=== PATIENT | female | born 1950 | race African-American/Black ===

== ENCOUNTER 2018-12-07 13:16 | Inpatient (IN) | payer OTHER ==
[~2018-12-07 13:16] MED LIST: ACETAMINOPHEN 1000 MG/100 ML VIAL (NON FORMULARY) IVPB ONE
[2018-12-07 13:26] VITALS: BMI 64.0
--- NOTE | 2018-12-07 14:03 | PDOC ---
History of Present Illness - General Chief Complaint: Weakness Stated Complaint: PAIN,UNABLE TO MOVE/vomiting/abd pain Time Seen by Provider: 12/07/18 13:38 History Source: Patient Exam Limitations: No Limitations - History of Present Illness Initial Comments: 12/07/18 13:58 68 yo F with a hx of DM presents to the emergency department with RUQ pain that began today at 12 pm. It was sudden onset while the patient was sitting on the toilet. The pain was 10/10, sharp, non radiating, and constant. She has had pain like this in the past but states the severity was less. She had 3x episodes of vomiting non-billious non bloody, but denies diarrhea. Per the patient, she states she feels currently better and does not have pain. The patient denies the following: chest pain, SOB, visual changes, nausea, abdominal pain, diarrhea, dysuria, hematuria, and leg pain/swelling. Endorses fevers. No recent travels or recent sick contacts. Shx: None Meds: Metformin Allergies: NKDA Social: Denies smoking, alcohol, and substance abuse. Past History - Past Medical History Allergies/Adverse Reactions: Allergies Allergy/AdvReac Type Severity Reaction Status Date / Time No Known Allergies Allergy Verified 12/07/18 13:18 Home Medications: Ambulatory Orders Atorvastatin Ca [Lipitor] 40 mg PO HS 12/08/18 Enalapril Maleate [Vasotec] 20 mg PO DAILY 12/08/18 metFORMIN HCL [Metformin HCl] 500 mg PO BID 12/08/18 COPD: No HTN: Yes - Suicide/Smoking/Psychosocial Hx Smoking History: Current every day smoker Have you smoked in the past 12 months: No Information on smoking cessation initiated: No Hx Alcohol Use: No Drug/Substance Use Hx: No Review of Systems - Review of Systems Able to Perform ROS?: Yes Is the patient limited [place] proficient: No Constitutional: Yes: Fever. No: Chills, Diaphoresis HEENTM: No: Eye Pain, Recent change in vision, Ear Pain, Nose Pain, Throat Pain Respiratory: No: Cough, Shortness of Breath, Hemoptysis Cardiac (ROS): No: Chest Pain, Lightheadedness, Palpitations, Syncope ABD/GI: Yes: Nausea, Vomiting. No: Constipated, Diarrhea, Rectal Bleeding, Tarry Stools : No: Burning, Dysuria, Hematuria, Incontinence Musculoskeletal: No: Back Pain, Joint Pain, Neck Pain Integumentary: No: Bruising, Erythema, Rash Neurological: No: Headache, Numbness, Tingling, Tremors Psychiatric: No: Change in Appetite Endocrine: No: Unexplained Weight Gain Hematologic/Lymphatic: No: Anemia *Physical Exam - Vital Signs Last Vital Signs Temp Pulse Resp BP Pulse Ox 102.7 F H 112 H 174 H 170/84 95 12/07/18 13:18 12/07/18 13:18 12/07/18 13:18 12/07/18 13:18 12/07/18 13:18 - Physical Exam General Appearance: Yes: Nourished, Appropriately Dressed, Obese. No: Apparent Distress, Intoxicated HEENT: positive: EOMI, PROMISE, Normal Voice, Symmetrical, Pharynx Normal, Hearing Grossly Normal. negative: Pale Conjunctivae, Scleral Icterus (R), Scleral Icterus (L), Muffled/Hoarse voice, Pharyngeal Erythema, Tonsillar Exudate, Tonsillar Erythema, Excessive drooling Neck: positive: Trachea midline, Supple. negative: Tender, Lymphadenopathy (R) , Lymphadenopathy (L), Tender lateral, Tender midline Respiratory/Chest: positive: Lungs Clear, Normal Breath Sounds, Other. negative : Chest Tender, Respiratory Distress, Accessory Muscle Use, Rales, Rhonchi, Stridor, Wheezing Cardiovascular: positive: Regular Rhythm, Regular Rate, S1, S2. negative: Systolic Murmur Gastrointestinal/Abdominal: positive: Normal Bowel Sounds, Flat, Soft, Protuberent. negative: Tender Lymphatic: negative: Adenopathy Musculoskeletal: positive: Normal Inspection. negative: CVA Tenderness Extremity: positive: Normal Capillary Refill, Normal Inspection, Normal Range of Motion. 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 negative: Facial Droop, Sensory Deficit Heart Score/ECG Review - ECG Intrepretation Comment:: Sinus tachycardia with left axis deviation and LVH. t wave inversion noted. ED Treatment Course - LABORATORY CBC & Chemistry Diagram: 12/08/18 05:30 12/08/18 05:30 Medical Decision Making - Medical Decision Making 68 yo F with a hx of DM presents to the emergency department with RUQ pain that began today at 12 pm. It was sudden onset while the patient was sitting on the toilet. Initial vitals; Initial Vital Signs Temp Pulse Resp BP Pulse Ox 102.7 F H 112 H 174 H 170/84 95 12/07/18 13:18 12/07/18 13:18 12/07/18 13:18 12/07/18 13:18 12/07/18 13:18 Work up: RUQ pain with fever concerns for cholecystitis vs cholangitis. ddx includes nephrolithiasis vs pyelonephritis vs UTI vs hepatitis vs cholelithiasis vs choledocholithiasis. Patient had a bedside POCUS that showed no wall thickening of the GB and CBD was difficult to visualize due to technical limitations. right kidney showed moderate hydronephrosis. Laboratory Tests 12/07/18 12/07/18 12/07/18 05:30 14:00 14:00 WBC 6.3 RBC 4.74 Hgb 12.8 Hct 39.6 MCV 83.6 MCH 27.1 MCHC 32.4 RDW 13.3 Plt Count 217 MPV 8.5 Absolute Neuts (auto) 5.8 Neutrophils % 91.1 H Neutrophils % (Manual) 76.5 Band Neutrophils % 8.2 Lymphocytes % 7.2 L Lymphocytes % (Manual) 10.2 Monocytes % 1.2 L Monocytes % (Manual) 4 Eosinophils % 0.2 Eosinophils % (Manual) 0.0 Basophils % 0.3 Basophils % (Manual) 0.0 Myelocytes % (Man) 0 Promyelocytes % (Man) 0 Blast Cells % (Manual) 0 Nucleated RBC % 0 Metamyelocytes 0 Hypochromia 0 Platelet Estimate Normal Polychromasia 0 Poikilocytosis 0 Anisocytosis 1+ Microcytosis 1+ Macrocytosis 0 PT with INR 13.30 H INR 1.13 H PTT (Actin FS) 27.5 VBG pH POC VBG pCO2 POC VBG pO2 VBG HCO3 VBG O2 Sat (Lizzie) VBG Base Excess Sodium Potassium Chloride Carbon Dioxide Anion Gap BUN Creatinine Creat Clearance w eGFR Random Glucose Lactic Acid Calcium Total Bilirubin AST ALT Alkaline Phosphatase Troponin I Total Protein Albumin Lipase Urine Color Urine Appearance Urine pH Ur Specific [place] Urine Protein Urine Glucose (UA) Urine Ketones Urine Blood Urine Nitrite Urine Bilirubin Urine Urobilinogen Ur Leukocyte Esterase Urine WBC (Auto) Urine RBC (Auto) Urine Casts (Auto) U Epithel Cells (Auto) Urine Bacteria (Auto) Influenza A (Rapid) Influenza B (Rapid) Blood Type A POSITIVE Antibody Screen Negative 12/07/18 12/07/18 12/07/18 14:00 14:00 14:00 WBC RBC Hgb Hct MCV MCH MCHC RDW Plt Count MPV Absolute Neuts (auto) Neutrophils % Neutrophils % (Manual) Band Neutrophils % Lymphocytes % Lymphocytes % (Manual) Monocytes % Monocytes % (Manual) Eosinophils % Eosinophils % (Manual) Basophils % Basophils % (Manual) Myelocytes % (Man) Promyelocytes % (Man) Blast Cells % (Manual) Nucleated RBC % Metamyelocytes Hypochromia Platelet Estimate Polychromasia Poikilocytosis Anisocytosis Microcytosis Macrocytosis PT with INR INR PTT (Actin FS) VBG pH 7.39 POC VBG pCO2 47.2 POC VBG pO2 28.0 L VBG HCO3 27.7 VBG O2 Sat (Lizzie) 48.9 L VBG Base Excess 2.5 H Sodium 142 Potassium 3.7 Chloride 107 Carbon Dioxide 30 Anion Gap 5 L BUN 16 Creatinine 1.1 Creat Clearance w eGFR 49.69 Random Glucose 105 Lactic Acid Calcium 8.8 Total Bilirubin 0.7 AST 26 ALT 30 Alkaline Phosphatase 70 Troponin I Total Protein 8.0 Albumin 3.7 Lipase 169 Urine Color Yellow Urine Appearance Clear Urine pH 6.5 Ur Specific [place] 1.007 L Urine Protein Negative Urine Glucose (UA) Negative Urine Ketones Negative Urine Blood 2+ H Urine Nitrite Negative Urine Bilirubin Negative Urine Urobilinogen 0.2 Ur Leukocyte Esterase Trace Urine WBC (Auto) 5 Urine RBC (Auto) 49 Urine Casts (Auto) 3 U Epithel Cells (Auto) 1.4 Urine Bacteria (Auto) 57.6 Influenza A (Rapid) Influenza B (Rapid) Blood Type Antibody Screen 12/07/18 12/07/18 12/07/18 14:00 14:00 14:25 WBC RBC Hgb Hct MCV MCH MCHC RDW Plt Count MPV Absolute Neuts (auto) Neutrophils % Neutrophils % (Manual) Band Neutrophils % Lymphocytes % Lymphocytes % (Manual) Monocytes % Monocytes % (Manual) Eosinophils % Eosinophils % (Manual) Basophils % Basophils % (Manual) Myelocytes % (Man) Promyelocytes % (Man) Blast Cells % (Manual) Nucleated RBC % Metamyelocytes Hypochromia Platelet Estimate Polychromasia Poikilocytosis Anisocytosis Microcytosis Macrocytosis PT with INR INR PTT (Actin FS) VBG pH POC VBG pCO2 POC VBG pO2 VBG HCO3 VBG O2 Sat (Lizzie) VBG Base Excess Sodium Potassium Chloride Carbon Dioxide Anion Gap BUN Creatinine Creat Clearance w eGFR Random Glucose Lactic Acid 3.4 H* Calcium Total Bilirubin AST ALT Alkaline Phosphatase Troponin I 0.02 Total Protein Albumin Lipase Urine Color Urine Appearance Urine pH Ur Specific [place] Urine Protein Urine Glucose (UA) Urine Ketones Urine Blood Urine Nitrite Urine Bilirubin Urine Urobilinogen Ur Leukocyte Esterase Urine WBC (Auto) Urine RBC (Auto) Urine Casts (Auto) U Epithel Cells (Auto) Urine Bacteria (Auto) Influenza A (Rapid) Negative Influenza B (Rapid) Negative Blood Type Antibody Screen patient received 30 cc/kg of fluids for IVF and tylenol for fever reduction and analgesia. patient received a CT scan with abdomen and pelvis that showed moderate hydronephrosis of the right kidney with an obstructing stone in the setting of a UTI on UA and fever. In addition, lactic acid elevated without a leukocytosis but elevated bands. influenza negative. cxr showed 12/07/18 19:02 A call was placed out to Dr. Lugo for possible infected stone. Concerning that she is septic in picture with moderate hydronephrosis with right renal calculi. 12/07/18 19:28 Dr. Lugo wants her to be NPO and will put a stent in tomorrow. Patient was signed out to Dr. Hugo *DC/Admit/Observation/Transfer Diagnosis at time of Disposition: Complicated UTI (urinary tract infection) - Referrals - Patient Instructions - Post Discharge Activity
[2018-12-07] MEDS ORDERED: SODIUM CHLORIDE IV ONE (14:06)
[2018-12-07] MEDS ORDERED: ACETAMINOPHEN 1000 MG/100 ML VIAL (NON FORMULARY) IVPB ONE (14:06)
[2018-12-07 14:21] LABS: VENOUS PC02 47.2 mmHg (41-51); VENOUS PH 7.39 (7.31-7.41)
[2018-12-07 14:33] LABS: BASO % 0.3 % (0-2.0); EOS % 0.2 % (0-4.5); HEMATOCRIT 39.6 % (32.4-45.2); HEMOGLOBIN 12.8 GM/dL (10.7-15.3); LYMPH % 7.2 % (8-40); MCH 27.1 pg (25.7-33.7); MCHC 32.4 g/dl (32.0-36.0); MEAN CELL VOLUME 83.6 fl (80-96); MEAN PLT VOLUME 8.5 fl (7.5-11.1); MONO % 1.2 % (3.8-10.2); NEUT % 91.1 % (42.8-82.8); PLATELET COUNT 217 K/MM3 (134-434); RBC 4.74 M/mm3 (3.60-5.2); RDW 13.3 % (11.6-15.6); WHITE BLOOD COUNT 6.3 K/mm3 (4.0-10.0)
[2018-12-07 14:37] LABS: EPI CELLS 1.4 /HPF (0-5/HPF); PH,URINE 6.5 (5.0-8.0); URINE APPEARANCE CLEAR; URINE BACTERIA 57.6 /hpf (NEGATIVE); URINE BILIRUBIN NEGATIVE (NEGATIVE); URINE CASTS 3 /lpf (0-8); URINE COLOR YELLOW; URINE GLUCOSE (UA) NEGATIVE (NEGATIVE); URINE KETONE NEGATIVE (NEGATIVE); URINE LEUK ESTERASE TRACE (NEGATIVE); URINE NITRITE NEGATIVE (NEGATIVE); URINE PROTEIN NEGATIVE (NEGATIVE); URINE RBC 49 /hpf (0-4); URINE UROBILINOGEN 0.2 mg/dL (0.2-1.0); URINE WBC 5 /hpf (0-5)
[2018-12-07 14:47] LABS: INR 1.13 (0.83-1.09); PROTHROMBIN TIME (PATIENT) 13.3 SEC (9.7-13.0)
[2018-12-07 14:49] LABS: ACTIVATED PTT 27.5 SECONDS (25.2-36.5)
[2018-12-07 15:04] LABS: ALBUMIN 3.7 g/dl (3.4-5.0); ALK PHOS 70 U/L (45-117); ANION GAP 5 MMOL/L (8-16); BILIRUBIN,TOTAL 0.7 mg/dL (0.2-1); BLOOD UREA NITROGEN 16 mg/dL (7-18); CALCIUM 8.8 mg/dL (8.5-10.1); CHLORIDE 107 mmol/L (98-107); CO2 30 mmol/L (21-32); CREATININE 1.1 mg/dL (0.55-1.3); GLUCOSE,RANDOM 105 mg/dL (74-106); LIPASE 169 U/L (73-393); POTASSIUM 3.7 mmol/L (3.5-5.1); SGOT/AST 26 U/L (15-37); SGPT/ALT 30 U/L (13-61); SODIUM 142 mmol/L (136-145)
[2018-12-07 15:11] LABS: ANISOCYTOSIS 1+; MACROCYTOSIS 0; PLATELET ESTIMATE NORMAL
[2018-12-07] MEDS ORDERED: PIPERACILLIN/TAZOB 3.375 GM 3.375 GM in DEXTROSE 5%-WATER - 50 ML IVPB ONE (15:30)
--- NOTE | 2018-12-07 16:11 | PDOC ---
Documentation entered by Cate Chapa SCRIBE, acting as scribe for Gelacio Gomez MD. Gelacio Gomez MD: This documentation has been prepared by the Sammi meehan Adrianna, SCRIBE, under my direction and personally reviewed by me in its entirety. I confirm that the documentation accurately reflects all work, treatment, procedures, and medical decision making performed by me. Attending Attestation - Resident Resident Name: Zafar Pinedo - ED Attending Attestation I have performed the following: I have examined & evaluated the patient, The case was reviewed & discussed with the resident, I agree w/resident's findings & plan, Exceptions are as noted - HPI HPI: The patient is a 68 year old female, with a significant PMH of DM and HTN, who presents to the emergency department today complaining of abdominal pain for 2 hours. Patient notes that the pain is most prominent on the R flank, and suddenly began while sitting on the toilet. She describes the pain as a 10/10, localized, constant, and sharp in nature. Patient endorses 3 episodes of associated NBNB vomit following the sudden onset of the abdominal pain. She confirms a history of similar symptoms in the past, but not as severe as today s episode. Patients son notes her last meal was 5 hours ago. The patient denies chest pain, shortness of breath, headache and dizziness. Denies fever, chills, diarrhea and constipation. Denies dysuria, frequency, urgency and hematuria. Allergies: NKA Past surgical history: Social history: Denies EtOH, tobacco, or illicit drug use. PCP: Dr. 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 Kurkowski with R hydro Plan for CTAP non con to evaluate kidneys 18:47- paged Dr. Lugo's call service, awaiting call back 12/07/18 18:47 19:29- resident spoke with Dr. Lugo concerning patient's care 12/07/18 19:37
--- NOTE | 2018-12-07 16:18 | EKG ---
Test Reason : Blood Pressure : / mmHG Vent. Rate : 109 BPM Atrial Rate : 109 BPM P-R Int : 146 ms QRS Dur : 086 ms QT Int : 334 ms P-R-T Axes : 035 -35 076 degrees QTc Int : 449 ms SINUS TACHYCARDIA POSSIBLE LEFT ATRIAL ENLARGEMENT LEFT AXIS DEVIATION LEFT VENTRICULAR HYPERTROPHY NONSPECIFIC T WAVE ABNORMALITY ABNORMAL ECG NO PREVIOUS ECGS AVAILABLE Confirmed by TYRESE LORD MD ([id number]) on 12/07/2018 4:17:53 PM Referred By: Confirmed By:TYRESE LORD MD
[2018-12-07] MEDS ORDERED: PIPERACILLIN/TAZOB 3.375 GM 3.375 GM/50 ML BAG IVPB ONE (16:30)
--- NOTE | 2018-12-07 19:50 | PN ---
Teaching Attending Note Name of Resident: Jf Palomino ATTENDING PHYSICIAN STATEMENT I saw and evaluated the patient. I reviewed the resident's note and discussed the case with the resident. I agree with the resident's findings and plan as documented. SUBJECTIVE: Patient is a 68 year old woman with PMH of NIDDM and HTN, who presents to the ER complaining of abdominal pain for 2 hours. Patient notes that the pain is most prominent on the R flank, and suddenly began while sitting on the toilet. She describes the pain as a 10/10, localized, constant, and sharp in nature. Patient had 3 episodes of associated NBNB vomit following the sudden onset of the abdominal pain. She confirms a history of similar symptoms in the past, but not as severe as todays episode. Patients son notes her last meal was 5 hours ago. The patient denies chest pain, shortness of breath, headache and dizziness. Denies fever, chills, diarrhea and constipation. Denies dysuria, frequency, urgency and hematuria. OBJECTIVE: Alert Vital Signs Period Temp Pulse Resp BP Sys/Mei Pulse Ox Last 24 Hr 99.3 F-102.7 F 92-112 20-174 155-170/69-84 95-98 HEENT: No Jaundice, eye redness or discharge, PERRLA, EOMI. Normocephalic, atraumatic. External ears are normal and hearing is grossly intact. No nasal discharge. Neck: Supple, nontender. No palpable adenopathy or thyromegaly. No JVD Chest: Good effort. Clear to auscultation and percussion. Heart: Regular. No S3, rub or murmur Abdomen: Not distended, soft, nontender and no HSM. No rebound or guarding. Normal bowel sounds. Ext: Peripheral pulses intact. No leg edema. Skin: Warm and dry. No petechiae, rash or ecchymosis. Neuro: Alert. Oriented x3. CN 2-12 grossly intact. Sensation grossly intact in all four extremities and DTR are symmetric. Psych: Appropriate mood and affect. Good insight. Home Medications Medication Instructions Recorded Unobtainable 12/07/18 Abnormal Lab Results 12/07/18 12/07/18 12/07/18 14:00 14:00 14:00 Neutrophils % 91.1 H Lymphocytes % 7.2 L Monocytes % 1.2 L PT with INR 13.30 H INR 1.13 H POC VBG pO2 VBG O2 Sat (Lizzie) VBG Base Excess Anion Gap Lactic Acid Ur Specific [place] 1.007 L Urine Blood 2+ H 12/07/18 12/07/18 12/07/18 14:00 14:00 14:00 Neutrophils % Lymphocytes % Monocytes % PT with INR INR POC VBG pO2 28.0 L VBG O2 Sat (Lizzie) 48.9 L VBG Base Excess 2.5 H Anion Gap 5 L Lactic Acid 3.4 H* Ur Specific [place] Urine Blood Current Medications Generic Name Dose Route Start Last Admin Trade Name Freq PRN Reason Stop Dose Admin Acetaminophen 650 mg 12/07/18 22:58 Tylenol - PO Q4H PRN PAIN LEVEL 1-5 Ceftriaxone Sodium 1 gm/ 50 mls @ 100 mls/hr 12/08/18 10:00 Dextrose IVPB DAILY [facility] Protocol Lactated Ringer's 1,000 mls @ 100 mls/hr 12/07/18 22:58 Lactated Ringers Solution IV ASDIR [facility] Insulin Aspart 1 vial 12/08/18 07:00 Novolog Vial Sliding Scale - SQ ACHS [facility] Protocol Morphine Sulfate 2 mg 12/07/18 22:58 Morphine Sulfate IVPUSH Q4H PRN PAIN LEVEL 6-10 ASSESSMENT AND PLAN: 1. Kidney stone disease/Right hydronephrosis/Sepsis - CT scan of abdomen/Pelvis shows right ureteral stone with hydronephrosis, bilateral renal calculi and bladder calculus. Flu swab is negative. Will treat with IV Rocephin, IV LR, Flomax and trend lactic acid. Keep patient NPO for possible cystoscopy. Consult urology. EKG shows sinus tachycardia with no significant ST-T wave changes. Needs ECHO to evaluate cardiomegaly and retrocardiac atelectasis noted on CXR. Outpatient workup for stone disease risk factor. 2. DM Will implement sliding scale insulin regimen. Provide comprehensive diabetes care with patient teaching and counseling about the importance of adherence to prescribed diabetes regimen, euglycemia, eye care and foot care. 3. Morbid Obesity Counseled on the risks associated with obesity. Will provide patient all the necessary assistance, counseling and positive reinforcement to facilitate weight loss. Consult enforcement manager. 4. Uncontrolled Hypertension - Restart outpatient antihypertensive drugs and revise regimen to ensure smooth [id number]-axisd good BP control. Nonpharmacologic measures to control hypertension like weight loss, salt restriction and exercise discussed. 5. DVT prophylaxis - SCD, TEDs. Start Lovenox 40 mg SQ q 12 hours after procedure. 6. Advance directives - Full code
[2018-12-07] MEDS ORDERED: LACTATED RINGERS SOLUTION 1,000 ML IV SCH ×2 (20:45→22:58)
[2018-12-07] MEDS ORDERED: MORPHINE SULFATE 2 MG/ML VIAL IVPUSH PRN ×2 (20:45→22:58)
[2018-12-07] MEDS ORDERED: ACETAMINOPHEN 325 MG TABLET (FP) PO PRN ×2 (20:45→22:58)
[2018-12-07] MEDS ORDERED: CEFTRIAXONE 1 GM in DEXTROSE 5%-WATER - 50 ML IVPB SCH (21:00)
[2018-12-07] MEDS ORDERED: INSULIN SLIDING SCALE (NOVOLOG) 1 VIAL SQ SCH (22:00)
[2018-12-07] MEDS ORDERED: GENTAMICIN SO4 80 MG/2 ML VIAL ONE (22:19)
--- NOTE | 2018-12-07 22:21 | CON.GU ---
Consult Consult Specialty:: urology Reason for Consultation:: urosepsis with obstucting right ureteral stone - History of Present Illness Chief Complaint: right renal colic with sepsis History of Present Illness: Patient is a 68 year old felmale with 3 day history of right flank pain with hydro secondary to a ureteral stone. The patient developed high grade fever with nausea and vomiting with tachycardia. Patient has not eaten for 24 hours. Patient describes weakness with severe lethargy. - History Source History Provided By: Patient, Family Member, Medical Record Limitations to Obtaining History: No Limitations - Alcohol/Substance Use Hx Alcohol Use: No - Smoking History Smoking history: Current every day smoker Have you smoked in the past 12 months: No Home Medications - Allergies Allergies/Adverse Reactions: Allergies Allergy/AdvReac Type Severity Reaction Status Date / Time No Known Allergies Allergy Verified 12/07/18 13:18 - Home Medications Home Medications: Ambulatory Orders Unobtainable 12/07/18 Physical Exam- Vital Signs: Vital Signs Temperature 99.3 F 12/07/18 17:48 Pulse Rate 92 H 12/07/18 17:48 Respiratory Rate 20 12/07/18 17:48 Blood Pressure 155/69 12/07/18 17:48 O2 Sat by Pulse Oximetry (%) 98 12/07/18 17:48 Constitutional: Yes: Severe Distress, Obese Eyes: Yes: WNL, Conjunctiva Clear, EOM Intact HENT: Yes: WNL, Atraumatic, Normocephalic Neck: Yes: WNL, Supple, Trachea Midline Cardiovascular: Yes: WNL Respiratory: Yes: Tachypnea Gastrointestinal: Yes: Soft, Abdomen, Obese, Hypoactive Bowel Sounds Renal/: Yes: CVA Tenderness - Right Kidneys: Yes: FLank Pain Right Pelvis: Yes: Bladder Non Palpable Musculoskeletal: Yes: WNL Labs: CBC, BMP 12/07/18 14:00 12/07/18 14:00 Imaging - Results Cat Scan: Report Reviewed Assessment/Plan imp right ureteral obstruction urosepsis plan * patient is emergently taken to the operating room for stent placement to avoid renal injury and * discussed with patient and family x 25 minutes
[2018-12-07] MEDS ORDERED: PROPOFOL 20 ML ONE (22:22)
[2018-12-07] MEDS ORDERED: KETAMINE HCL 200 MG/20 ML VIAL ONE (22:23)
[2018-12-07] MEDS ORDERED: SUCCINYLCHOLINE CHLORIDE 200 MG/10 ML VIAL ONE (22:23)
[2018-12-07] MEDS ORDERED: ROCURONIUM BROMIDE 50 MG/5 ML VIAL ONE ×2 (22:54)
[2018-12-07] MEDS ORDERED: GLYCOPYRROLATE 0.2 MG/1 ML VIAL ONE (23:11)
[2018-12-07] MEDS ORDERED: IOHEXOL 300 MG/ML INFUS..BTL IJ ONE ×2 (23:11)
[2018-12-07] MEDS ORDERED: DEXAMETHASONE SOD PHOSPHATE 4 MG/1 ML VIAL ONE (23:11)
[2018-12-07] MEDS ORDERED: NEOSTIGMINE METHYLSULFATE 0.5 MG/1 ML - 10 ML MDV ONE (23:11)
--- NOTE | 2018-12-07 23:11 | HP ---
CHIEF COMPLAINT: R abd and back pain PCP: HISTORY OF PRESENT ILLNESS: Patient is a 68 y/o F w/ PMHx DM p/w R-sided abdominal pain with acute onset around noon, 10/10 severity, sharp, non-radiating, a/w 3 episodes NBNB emesis and generalized back pain, fever. ROS otherwise negative. On presentation febrile to 102.7, tachycardic to 112, BP 170/84, all improved after administration of Ofirmev. No leukocytosis, CBC and BMP wnl, lactate 3.4-->2.5, UA showing 5 WBC, 49 RBC, 57.[address] pending[address] CT a/p showed 0.5x0.3cm obstructive R ureteral stone causing hydronephrosis, additional b/l non-obstructing renal stones, bladder stone, and incidental adrenal adenoma. Received 2.4L NS bolus, Ofirmev, Zosyn in ED. At time of encounter pain was largely resolved although residual back pain remained. Recent Travel: PAST MEDICAL HISTORY: As per [facility] PAST SURGICAL HISTORY: Social History: Smoking: Alcohol: Drugs: Family History: Allergies No Known Allergies Allergy (Verified 12/07/18 13:18) HOME MEDICATIONS: Home Medications Medication Instructions Recorded Unobtainable 12/07/18 REVIEW OF SYSTEMS As per [facility] PHYSICAL EXAMINATION Vital Signs - 24 hr 12/07/18 12/07/18 13:18 17:48 Temperature 102.7 F H 99.3 F Pulse Rate 112 H Pulse Rate [ 92 H Left Radial] Respiratory 174 H 20 Rate Blood Pressure 170/84 Blood Pressure 155/69 [Left Arm] O2 Sat by Pulse 95 98 Oximetry (%) GENERAL: A&Ox3, NAD HEENT: NC/AT, PERRLA, EOMI, MMM NECK: Trachea midline, full range of motion, supple. LUNGS: body habitus limiting exam, no adventitious sounds appreciated HEART: body habitus limiting exam, RRR ABDOMEN: morbidly obese, soft, NT, ND EXTREMITIES: 2+ pulses, warm, well-perfused, +venous stasis, no edema. 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 SKIN: Warm, dry, normal turgor, no rashes or lesions noted Laboratory Results - last 24 hr 12/07/18 12/07/18 12/07/18 14:00 14:00 14:00 WBC 6.3 RBC 4.74 Hgb 12.8 Hct 39.6 MCV 83.6 MCH 27.1 MCHC 32.4 RDW 13.3 Plt Count 217 MPV 8.5 Absolute Neuts (auto) 5.8 Neutrophils % 91.1 H Neutrophils % (Manual) 76.5 Band Neutrophils % 8.2 Lymphocytes % 7.2 L Lymphocytes % (Manual) 10.2 Monocytes % 1.2 L Monocytes % (Manual) 4 Eosinophils % 0.2 Eosinophils % (Manual) 0.0 Basophils % 0.3 Basophils % (Manual) 0.0 Myelocytes % (Man) 0 Promyelocytes % (Man) 0 Blast Cells % (Manual) 0 Nucleated RBC % 0 Metamyelocytes 0 Hypochromia 0 Platelet Estimate Normal Polychromasia 0 Poikilocytosis 0 Anisocytosis 1+ Microcytosis 1+ Macrocytosis 0 PT with INR 13.30 H INR 1.13 H PTT (Actin FS) 27.5 VBG pH POC VBG pCO2 POC VBG pO2 VBG HCO3 VBG O2 Sat (Lizzie) VBG Base Excess Sodium Potassium Chloride Carbon Dioxide Anion Gap BUN Creatinine Creat Clearance w eGFR Random Glucose Lactic Acid Calcium Total Bilirubin AST ALT Alkaline Phosphatase Troponin I Total Protein Albumin Lipase Urine Color Yellow Urine Appearance Clear Urine pH 6.5 Ur Specific [place] 1.007 L Urine Protein Negative Urine Glucose (UA) Negative Urine Ketones Negative Urine Blood 2+ H Urine Nitrite Negative Urine Bilirubin Negative Urine Urobilinogen 0.2 Ur Leukocyte Esterase Trace Urine WBC (Auto) 5 Urine RBC (Auto) 49 Urine Casts (Auto) 3 U Epithel Cells (Auto) 1.4 Urine Bacteria (Auto) 57.6 Influenza A (Rapid) Influenza B (Rapid) 12/07/18 12/07/18 12/07/18 14:00 14:00 14:00 WBC RBC Hgb Hct MCV MCH MCHC RDW Plt Count MPV Absolute Neuts (auto) Neutrophils % Neutrophils % (Manual) Band Neutrophils % Lymphocytes % Lymphocytes % (Manual) Monocytes % Monocytes % (Manual) Eosinophils % Eosinophils % (Manual) Basophils % Basophils % (Manual) Myelocytes % (Man) Promyelocytes % (Man) Blast Cells % (Manual) Nucleated RBC % Metamyelocytes Hypochromia Platelet Estimate Polychromasia Poikilocytosis Anisocytosis Microcytosis Macrocytosis PT with INR INR PTT (Actin FS) VBG pH 7.39 POC VBG pCO2 47.2 POC VBG pO2 28.0 L VBG HCO3 27.7 VBG O2 Sat (Lizzie) 48.9 L VBG Base Excess 2.5 H Sodium 142 Potassium 3.7 Chloride 107 Carbon Dioxide 30 Anion Gap 5 L BUN 16 Creatinine 1.1 Creat Clearance w eGFR 49.69 Random Glucose 105 Lactic Acid 3.4 H* Calcium 8.8 Total Bilirubin 0.7 AST 26 ALT 30 Alkaline Phosphatase 70 Troponin I Total Protein 8.0 Albumin 3.7 Lipase 169 Urine Color Urine Appearance Urine pH Ur Specific [place] Urine Protein Urine Glucose (UA) Urine Ketones Urine Blood Urine Nitrite Urine Bilirubin Urine Urobilinogen Ur Leukocyte Esterase Urine WBC (Auto) Urine RBC (Auto) Urine Casts (Auto) U Epithel Cells (Auto) Urine Bacteria (Auto) Influenza A (Rapid) Influenza B (Rapid) 12/07/18 12/07/18 12/07/18 14:00 14:25 18:40 WBC RBC Hgb Hct MCV MCH MCHC RDW Plt Count MPV Absolute Neuts (auto) Neutrophils % Neutrophils % (Manual) Band Neutrophils % Lymphocytes % Lymphocytes % (Manual) Monocytes % Monocytes % (Manual) Eosinophils % Eosinophils % (Manual) Basophils % Basophils % (Manual) Myelocytes % (Man) Promyelocytes % (Man) Blast Cells % (Manual) Nucleated RBC % Metamyelocytes Hypochromia Platelet Estimate Polychromasia Poikilocytosis Anisocytosis Microcytosis Macrocytosis PT with INR INR PTT (Actin FS) VBG pH POC VBG pCO2 POC VBG pO2 VBG HCO3 VBG O2 Sat (Lizzie) VBG Base Excess Sodium Potassium Chloride Carbon Dioxide Anion Gap BUN Creatinine Creat Clearance w eGFR Random Glucose Lactic Acid 2.5 H* Calcium Total Bilirubin AST ALT Alkaline Phosphatase Troponin I 0.02 Total Protein Albumin Lipase Urine Color Urine Appearance Urine pH Ur Specific [place] Urine Protein Urine Glucose (UA) Urine Ketones Urine Blood Urine Nitrite Urine Bilirubin Urine Urobilinogen Ur Leukocyte Esterase Urine WBC (Auto) Urine RBC (Auto) Urine Casts (Auto) U Epithel Cells (Auto) Urine Bacteria (Auto) Influenza A (Rapid) Negative Influenza B (Rapid) Negative ASSESSMENT/PLAN: Patient is a 68 y/o F w/ PMHx DM p/w R-sided abdominal pain with acute onset around noon, 10/10 severity, sharp, non-radiating, a/w 3 episodes NBNB emesis and generalized back pain, fever #A -UA positive -obstructing R ureteral stone w/ hydronephrosis -meets sepsis criteria -sugars well controlled #P -urology consulted -Dr. Lugo to perform emergent stenting -pre-op labs pending -nephrology consulted -ceftriaxone -flomax -tylenol/morphine per pain scale -SSI, BGM ACHS -LR @ 100 -f/u BMP, Mg, Phos -NPO -mechanical DVT PPx -full code -admit to med/surg Visit type - Emergency Visit Emergency Visit: Yes ED Registration Date: 12/07/18 Care time: The patient presented to the Emergency Department on the above date and was hospitalized for further evaluation of their emergent condition. - New Patient This patient is new to me today: Yes Date on this admission: 12/07/18 - Critical Care Critical Care patient: No
--- NOTE | 2018-12-07 23:21 | OP ---
Operative Note - Note: Operative Date: 12/07/18 Pre-Operative Diagnosis: right hydronephrosis with obstructing right ureteral stone with urosepsis Operation: cystoscopy/right retrograde pyelogram/right ureteroscopic stone basketing and stent placement Findings: grade 4/5 hydroureteronephrosis Post-Operative Diagnosis: Same as Pre-op Surgeon: Dom Lugo Anesthesia: General Specimens Removed: right ureteral stone Drains & Tubes with Location: 02/03 right ureteral stone
[2018-12-07] MEDS ORDERED: LABETALOL HCL 5 MG/1 ML (100MG/20 ML VIAL) ONE (23:28)
[2018-12-07] MEDS ORDERED: ESMOLOL HCL 100,000 MCG/10 ML VIAL ONE (23:28)
[2018-12-08] MEDS ORDERED: ACETAMINOPHEN INJECTION 100 ML IVPB ONE (00:06)
[2018-12-08] MEDS ORDERED: hydrALAZINE HCL 20 MG/ML VIAL ONE (00:15)
--- NOTE | 2018-12-08 00:29 | CONSULT ---
Consultation: REQUESTING PROVIDER: OR CONSULT REQUEST: We have been asked to medically evaluate this patient for post op. HISTORY OF PRESENT ILLNESS: This is a 68 year old female with a history of morbid obesity, hypertension and diabetes mellitus II, who presented to the ER with severe abdominal pain. Patient found to be septic with urinary tract infection, CT revealed right hydronephrosis with obstructing right ureteral stone. She was taken to OR for cystoscopy/right retrograde pyelogram/right ureteroscopic stone basketing and stent placement. Post op remained febrile, with BP 210/109. She was extubated and given 0mg IV labetolol with out effect on BP. Upon receiving patient ; appears tachypniec ; on venti mask ; with BP 197/95. Responds with yes or no. Denies NUÑEZ, CP , blurry vision, palpitations. She states she braga not ambulate well at home, mostly sedentary. PMHs : as above Social : denies smoking . alcohol or drug use REVIEW OF SYSTEMS:as above PHYSICAL EXAMINATION Vital Signs - 24 hr 12/07/18 12/07/18 13:18 17:48 Temperature 102.7 F H 99.3 F Pulse Rate 112 H Pulse Rate [ 92 H Left Radial] Respiratory 174 H 20 Rate Blood Pressure 170/84 Blood Pressure 155/69 [Left Arm] O2 Sat by Pulse 95 98 Oximetry (%) GENERAL: obese , lethargic, responds to question with one word answers; on vent mask HEAD: Normal with no signs of trauma. EYES: Pupils equal, round and reactive to light, extraocular movements intact, sclera anicteric, conjunctiva clear. No lid lag. LUNGS:bilateral course breath sounds; crackles at basis scattered wheeze HEART: Regular rate and rhythm, normal S1 and S2 without murmur, rub or gallop. ABDOMEN: Soft, nontender,obese, normoactive bowel sounds, UPPER EXTREMITIES: 2+ pulses, warm, well-perfused. No cyanosis. No clubbing. Cap refill <2 seconds. No peripheral edema. LOWER EXTREMITIES: 2+ pulses, warm, well-perfused. No calf tenderness. trace b/ l pedal edema; chronic venous stasis changes; NEUROLOGICAL: Cranial nerves II-XII intact. Normal speech. PSYCHIATRIC: poor eye contact SKIN: Warm, dry, normal turgor, no rashes or lesions noted. Laboratory Results - last 24 hr 12/07/18 12/07/18 12/07/18 14:00 14:00 14:00 WBC 6.3 RBC 4.74 Hgb 12.8 Hct 39.6 MCV 83.6 MCH 27.1 MCHC 32.4 RDW 13.3 Plt Count 217 MPV 8.5 Absolute Neuts (auto) 5.8 Neutrophils % 91.1 H Neutrophils % (Manual) 76.5 Band Neutrophils % 8.2 Lymphocytes % 7.2 L Lymphocytes % (Manual) 10.2 Monocytes % 1.2 L Monocytes % (Manual) 4 Eosinophils % 0.2 Eosinophils % (Manual) 0.0 Basophils % 0.3 Basophils % (Manual) 0.0 Myelocytes % (Man) 0 Promyelocytes % (Man) 0 Blast Cells % (Manual) 0 Nucleated RBC % 0 Metamyelocytes 0 Hypochromia 0 Platelet Estimate Normal Polychromasia 0 Poikilocytosis 0 Anisocytosis 1+ Microcytosis 1+ Macrocytosis 0 PT with INR 13.30 H INR 1.13 H PTT (Actin FS) 27.5 VBG pH POC VBG pCO2 POC VBG pO2 VBG HCO3 VBG O2 Sat (Lizzie) VBG Base Excess Sodium Potassium Chloride Carbon Dioxide Anion Gap BUN Creatinine Creat Clearance w eGFR Random Glucose Lactic Acid Calcium Total Bilirubin AST ALT Alkaline Phosphatase Troponin I Total Protein Albumin Lipase Urine Color Yellow Urine Appearance Clear Urine pH 6.5 Ur Specific [place] 1.007 L Urine Protein Negative Urine Glucose (UA) Negative Urine Ketones Negative Urine Blood 2+ H Urine Nitrite Negative Urine Bilirubin Negative Urine Urobilinogen 0.2 Ur Leukocyte Esterase Trace Urine WBC (Auto) 5 Urine RBC (Auto) 49 Urine Casts (Auto) 3 U Epithel Cells (Auto) 1.4 Urine Bacteria (Auto) 57.6 Influenza A (Rapid) Influenza B (Rapid) 12/07/18 12/07/18 12/07/18 14:00 14:00 14:00 WBC RBC Hgb Hct MCV MCH MCHC RDW Plt Count MPV Absolute Neuts (auto) Neutrophils % Neutrophils % (Manual) Band Neutrophils % Lymphocytes % Lymphocytes % (Manual) Monocytes % Monocytes % (Manual) Eosinophils % Eosinophils % (Manual) Basophils % Basophils % (Manual) Myelocytes % (Man) Promyelocytes % (Man) Blast Cells % (Manual) Nucleated RBC % Metamyelocytes Hypochromia Platelet Estimate Polychromasia Poikilocytosis Anisocytosis Microcytosis Macrocytosis PT with INR INR PTT (Actin FS) VBG pH 7.39 POC VBG pCO2 47.2 POC VBG pO2 28.0 L VBG HCO3 27.7 VBG O2 Sat (Lizzie) 48.9 L VBG Base Excess 2.5 H Sodium 142 Potassium 3.7 Chloride 107 Carbon Dioxide 30 Anion Gap 5 L BUN 16 Creatinine 1.1 Creat Clearance w eGFR 49.69 Random Glucose 105 Lactic Acid 3.4 H* Calcium 8.8 Total Bilirubin 0.7 AST 26 ALT 30 Alkaline Phosphatase 70 Troponin I Total Protein 8.0 Albumin 3.7 Lipase 169 Urine Color Urine Appearance Urine pH Ur Specific [place] Urine Protein Urine Glucose (UA) Urine Ketones Urine Blood Urine Nitrite Urine Bilirubin Urine Urobilinogen Ur Leukocyte Esterase Urine WBC (Auto) Urine RBC (Auto) Urine Casts (Auto) U Epithel Cells (Auto) Urine Bacteria (Auto) Influenza A (Rapid) Influenza B (Rapid) 12/07/18 12/07/18 12/07/18 14:00 14:25 18:40 WBC RBC Hgb Hct MCV MCH MCHC RDW Plt Count MPV Absolute Neuts (auto) Neutrophils % Neutrophils % (Manual) Band Neutrophils % Lymphocytes % Lymphocytes % (Manual) Monocytes % Monocytes % (Manual) Eosinophils % Eosinophils % (Manual) Basophils % Basophils % (Manual) Myelocytes % (Man) Promyelocytes % (Man) Blast Cells % (Manual) Nucleated RBC % Metamyelocytes Hypochromia Platelet Estimate Polychromasia Poikilocytosis Anisocytosis Microcytosis Macrocytosis PT with INR INR PTT (Actin FS) VBG pH POC VBG pCO2 POC VBG pO2 VBG HCO3 VBG O2 Sat (Lizzie) VBG Base Excess Sodium Potassium Chloride Carbon Dioxide Anion Gap BUN Creatinine Creat Clearance w eGFR Random Glucose Lactic Acid 2.5 H* Calcium Total Bilirubin AST ALT Alkaline Phosphatase Troponin I 0.02 Total Protein Albumin Lipase Urine Color Urine Appearance Urine pH Ur Specific [place] Urine Protein Urine Glucose (UA) Urine Ketones Urine Blood Urine Nitrite Urine Bilirubin Urine Urobilinogen Ur Leukocyte Esterase Urine WBC (Auto) Urine RBC (Auto) Urine Casts (Auto) U Epithel Cells (Auto) Urine Bacteria (Auto) Influenza A (Rapid) Negative Influenza B (Rapid) Negative Active Medications Generic Name Dose Route Start Last Admin Trade Name Freq PRN Reason Stop Dose Admin Acetaminophen 650 mg 12/07/18 22:58 Tylenol - PO Q4H PRN PAIN LEVEL 1-5 Ceftriaxone Sodium 1 gm/ 50 mls @ 100 mls/hr 12/08/18 10:00 Dextrose IVPB DAILY [facility] Protocol Lactated Ringer's 1,000 mls @ 100 mls/hr 12/07/18 22:58 Lactated Ringers Solution IV ASDIR GOVIND Insulin Aspart 1 vial 12/08/18 07:00 Novolog Vial Sliding Scale - SQ ACHS [facility] Protocol Morphine Sulfate 2 mg 12/07/18 22:58 Morphine Sulfate IVPUSH Q4H PRN PAIN LEVEL 6-10 ASSESSMENT/PLAN: This is a 68 year old obese female with history of DM, HTN, presented with abdominal pain, admitted for sepsis secondary to UTI with right hypdronephrosis and obstructing uretral stone. #Sepsis UTI with right hypdronephrosis and obstructive stone #POD #0 for : cystoscopy/right retrograde pyelogram/right ureteroscopic stone basketing and stent placement #Severe hypertension #DM -post op extubation; patient lethargic; hypertensive; s/p labetolol and hydralazine and still with systolic BP 200s -will start cardene drip -new crackles on lung exam; possible sec to fluid overload from IVF given for sepsis; r/o flash pulm edema from extubation -stat cxr -repeat abg -nebs -IV antibiotics; f/u cultures -BNP; -consider doppler b/l leg due leg swelling and sedentary lifestyle -incentive spirometer -BGM, insulin ss VTE ppl ; scds; s/p sx Thank you for this consultative opportunity. Visit type - Emergency Visit Emergency Visit: Yes ED Registration Date: 12/07/18 Care time: The patient presented to the Emergency Department on the above date and was hospitalized for further evaluation of their emergent condition. - New Patient This patient is new to me today: Yes Date on this admission: 12/08/18 - Critical Care Critical Care patient: Yes Total Critical Care Time (in minutes): 45 Critical Care Statement: The care of this patient involved high complexity decision making to prevent further life threatening deterioration of the patient 's condition and/or to evaluate & treat vital organ system(s) failure or risk of failure.
[2018-12-08] MEDS ORDERED: ACETAMINOPHEN 1000 MG/100 ML VIAL (NON FORMULARY) IVPB ONE (00:35)
[2018-12-08] MEDS ORDERED: ONDANSETRON 4 MG/2 ML VIAL IVPUSH PRN ×3 (00:35→23:10)
[2018-12-08] MEDS ORDERED: ALBUTEROL SO4 0.083% IH SOL 2.5 MG/3 ML VIAL.NEB. NEB ONE ×2 (00:38→18:28)
[2018-12-08] MEDS ORDERED: LACTATED RINGERS SOLUTION 1,000 ML IV SCH (00:45)
[2018-12-08] MEDS ORDERED: NICARDIPINE 25 MG in DEXTROSE 5%-WATER - 240 ML IVPB SCH (01:15)
[2018-12-08] MEDS ORDERED: niCARdipine HCL 25 MG/10 ML AMPUL IVPB ONE (01:37)
--- NOTE | 2018-12-08 01:47 | OP ---
DATE OF OPERATION: 12/07/2018 PREOPERATIVE DIAGNOSIS: Urosepsis with right hydronephrosis secondary to obstructing right ureteral stone. POSTOPERATIVE DIAGNOSIS: Urosepsis with right hydronephrosis secondary to obstructing right ureteral stone. PROCEDURE: Cystoscopy, right retrograde pyelogram, right ureteroscopic stone basketing and right ureteral stent placement. ATTENDING: Danni Mccarthy MD ANESTHESIA: General. OPERATION: The patient was brought into the emergency room with a high-grade fever with tachycardia consistent with a urinary tract infection. Her urine contained leukocyte esterase. The patient was started on Zosyn in the operating room and the urologist was called based on the clinical information. The patient required a ureteral stent placed emergently in order to avoid kidney injury and . Risks and benefits were explained to the family. The patient was brought to the operating room and placed in the supine position on the operating table. Anesthesia was administered. The patient is currently on Zosyn and was given a dose of gentamicin. At this point, the patient was placed in the dorsal lithotomy position, prepped, and draped in the usual sterile manner. Cystoscopy was performed and no evidence of a stone or neoplasm was noted within the bladder. There was patchy erythema throughout the bladder, consistent with the urinary tract infection. At this time, a retrograde pyelogram was performed, which revealed a grade 4/5 hydroureter. A filling defect was noted in the distal ureter. Ureteroscopy was performed and the stone was seen. The stone was basketed with minimal manipulation and removed and sent for pathology. A wire had been passed proximally under fluoroscopic guidance prior to the stone basketing. With the wire in place, a 6-Indonesian 22-cm stent was placed over the wire utilizing the Seldinger technique. No complications were noted. The patient tolerated the procedure very well. DANNI MCCARTHY M.D. /[id number]
[2018-12-08] MEDS: INSULIN SLIDING SCALE (NOVOLOG) 1 VIAL SQ SCH ×3 (06:38→17:11)
[2018-12-08 06:47] LABS: BASO % 0.2 % (0-2.0); EOS % 0.1 % (0-4.5); HEMATOCRIT 37.8 % (32.4-45.2); MCH 26.3 pg (25.7-33.7); MCHC 31.8 g/dl (32.0-36.0); MEAN CELL VOLUME 82.8 fl (80-96); MEAN PLT VOLUME 8.3 fl (7.5-11.1); MONO % 5.3 % (3.8-10.2); NEUT % 82.4 % (42.8-82.8); PLATELET COUNT 248 K/MM3 (134-434); RBC 4.56 M/mm3 (3.60-5.2); RDW 13.3 % (11.6-15.6); WHITE BLOOD COUNT 12.4 K/mm3 (4.0-10.0)
[2018-12-08 06:55] LABS: ANION GAP 9 MMOL/L (8-16); BLOOD UREA NITROGEN 12 mg/dL (7-18); CALCIUM 8.4 mg/dL (8.5-10.1); CHLORIDE 108 mmol/L (98-107); CO2 26 mmol/L (21-32); CREATININE 0.8 mg/dL (0.55-1.3); GLUCOSE,RANDOM 143 mg/dL (74-106); MAGNESIUM 2.1 mg/dL (1.8-2.4); PHOSPHOROUS 4.2 mg/dL (2.5-4.9); POTASSIUM 3.8 mmol/L (3.5-5.1); SODIUM 143 mmol/L (136-145)
[2018-12-08] MEDS ORDERED: TAMSULOSIN HCL 0.4 MG CAP PO SCH (08:30)
[2018-12-08] MEDS ORDERED: CEFTRIAXONE 1 GM in DEXTROSE 5%-WATER - 50 ML IVPB SCH (10:00)
[2018-12-08] MEDS ORDERED: MUPIROCIN 2% TOPICAL OINTMENT FOR DECOLONIZATION NS SCH ×2 (10:00→22:00)
[2018-12-08] MEDS ORDERED: ENALAPRIL MALEATE 10 MG TABLET (FP) PO SCH (11:00)
--- NOTE | 2018-12-08 11:09 | PN ---
Teaching Attending Note Name of Resident: Kaye Gunter ATTENDING PHYSICIAN STATEMENT I saw and evaluated the patient. I reviewed the resident's note and discussed the case with the resident. I agree with the resident's findings and plan as documented. SUBJECTIVE: Patient seen and examined in the ICU. Awake and alert. Translation via hospital service. No CP or SOB. No abdominal pain. Remains on Cardene drip at 5mg/hour. Intake & Output 12/05/18 12/06/18 12/07/18 12/08/18 23:59 23:59 23:59 23:59 Intake Total 3900 150 Output Total 0 Balance 3900 150 Weight 350 lb 350 lb Last Vital Signs Temp Pulse Resp BP Pulse Ox 99.0 F 73 20 147/75 97 12/08/18 06:00 12/08/18 07:44 12/08/18 07:44 12/08/18 07:44 12/08/18 01:09 Active Medications Acetaminophen (Tylenol -) 650 mg PO Q4H PRN PRN Reason: PAIN LEVEL 1-5 Atorvastatin Calcium (Lipitor -) 40 mg PO HS [facility] Chlorhexidine Gluconate (Hibiclens For Decolonization -) 1 applic TP HS [facility] Enalapril Maleate (Vasotec -) 20 mg PO DAILY [facility] Ceftriaxone Sodium 1 gm/ (Dextrose) 50 mls @ 100 mls/hr IVPB DAILY [facility]; Protocol Nicardipine HCl 25 mg/ (Dextrose) 250 mls @ 25 mls/hr IVPB TITR [facility]; Protocol Last Admin: 12/08/18 01:41 Dose: 2.5 mg/hr, 25 mls/hr Insulin Aspart (Novolog Vial Sliding Scale -) 1 vial SQ ACHS [facility]; Protocol Last Admin: 12/08/18 06:38 Dose: Not Given Morphine Sulfate (Morphine Sulfate) 2 mg IVPUSH Q4H PRN PRN Reason: PAIN LEVEL 6-10 Mupirocin (Bactroban Ointment (For Decolonization) -) 1 applic NS BID [facility] Stop: 12/13/18 09:59 Ondansetron HCl (Zofran Injection) 4 mg IVPUSH Q6H PRN PRN Reason: NAUSEA AND/OR VOMITING Last Admin: 12/08/18 01:05 Dose: 4 mg GENERAL: Awake and alert, NAD HEAD: Normal with no signs of trauma. EYES: sclera anicteric, conjunctiva clear. No lid lag. LUNGS:few scattered rhonchi HEART: Regular rate and rhythm, normal S1 and S2 without murmur, rub or gallop. ABDOMEN: Soft, nontender,obese, normoactive bowel sounds, UPPER EXTREMITIES: 2+ pulses, warm, well-perfused. No cyanosis. No clubbing. Cap refill <2 seconds. No peripheral edema. LOWER EXTREMITIES: 2+ pulses, warm, well-perfused. No calf tenderness. trace b/ l pedal edema; chronic venous stasis changes; NEUROLOGICAL: Non-focal PSYCHIATRIC: WNL SKIN: Warm, dry, normal turgor, no rashes or lesions noted. Laboratory Results - last 24 hr 12/07/18 12/07/18 12/07/18 05:30 14:00 14:00 WBC 6.3 RBC 4.74 Hgb 12.8 Hct 39.6 MCV 83.6 MCH 27.1 MCHC 32.4 RDW 13.3 Plt Count 217 MPV 8.5 Absolute Neuts (auto) 5.8 Neutrophils % 91.1 H Neutrophils % (Manual) 76.5 Band Neutrophils % 8.2 Lymphocytes % 7.2 L Lymphocytes % (Manual) 10.2 Monocytes % 1.2 L Monocytes % (Manual) 4 Eosinophils % 0.2 Eosinophils % (Manual) 0.0 Basophils % 0.3 Basophils % (Manual) 0.0 Myelocytes % (Man) 0 Promyelocytes % (Man) 0 Blast Cells % (Manual) 0 Nucleated RBC % 0 Metamyelocytes 0 Hypochromia 0 Platelet Estimate Normal Polychromasia 0 Poikilocytosis 0 Anisocytosis 1+ Microcytosis 1+ Macrocytosis 0 PT with INR 13.30 H INR 1.13 H PTT (Actin FS) 27.5 VBG pH POC VBG pCO2 POC VBG pO2 VBG HCO3 VBG O2 Sat (Lizzie) VBG Base Excess Sodium Potassium Chloride Carbon Dioxide Anion Gap BUN Creatinine Creat Clearance w eGFR POC Glucometer Random Glucose Lactic Acid Calcium Phosphorus Magnesium Total Bilirubin AST ALT Alkaline Phosphatase Creatine Kinase Creatine Kinase Index CK-MB (CK-2) Troponin I B-Natriuretic Peptide Total Protein Albumin Lipase Urine Color Urine Appearance Urine pH Ur Specific [place] Urine Protein Urine Glucose (UA) Urine Ketones Urine Blood Urine Nitrite Urine Bilirubin Urine Urobilinogen Ur Leukocyte Esterase Urine WBC (Auto) Urine RBC (Auto) Urine Casts (Auto) U Epithel Cells (Auto) Urine Bacteria (Auto) Influenza A (Rapid) Influenza B (Rapid) Blood Type A POSITIVE Antibody Screen Negative 12/07/18 12/07/18 12/07/18 14:00 14:00 14:00 WBC RBC Hgb Hct MCV MCH MCHC RDW Plt Count MPV Absolute Neuts (auto) Neutrophils % Neutrophils % (Manual) Band Neutrophils % Lymphocytes % Lymphocytes % (Manual) Monocytes % Monocytes % (Manual) Eosinophils % Eosinophils % (Manual) Basophils % Basophils % (Manual) Myelocytes % (Man) Promyelocytes % (Man) Blast Cells % (Manual) Nucleated RBC % Metamyelocytes Hypochromia Platelet Estimate Polychromasia Poikilocytosis Anisocytosis Microcytosis Macrocytosis PT with INR INR PTT (Actin FS) VBG pH 7.39 POC VBG pCO2 47.2 POC VBG pO2 28.0 L VBG HCO3 27.7 VBG O2 Sat (Lizzie) 48.9 L VBG Base Excess 2.5 H Sodium 142 Potassium 3.7 Chloride 107 Carbon Dioxide 30 Anion Gap 5 L BUN 16 Creatinine 1.1 Creat Clearance w eGFR 49.69 POC Glucometer Random Glucose 105 Lactic Acid Calcium 8.8 Phosphorus Magnesium Total Bilirubin 0.7 AST 26 ALT 30 Alkaline Phosphatase 70 Creatine Kinase Creatine Kinase Index CK-MB (CK-2) Troponin I B-Natriuretic Peptide Total Protein 8.0 Albumin 3.7 Lipase 169 Urine Color Yellow Urine Appearance Clear Urine pH 6.5 Ur Specific [place] 1.007 L Urine Protein Negative Urine Glucose (UA) Negative Urine Ketones Negative Urine Blood 2+ H Urine Nitrite Negative Urine Bilirubin Negative Urine Urobilinogen 0.2 Ur Leukocyte Esterase Trace Urine WBC (Auto) 5 Urine RBC (Auto) 49 Urine Casts (Auto) 3 U Epithel Cells (Auto) 1.4 Urine Bacteria (Auto) 57.6 Influenza A (Rapid) Influenza B (Rapid) Blood Type Antibody Screen 12/07/18 12/07/18 12/07/18 14:00 14:00 14:25 WBC RBC Hgb Hct MCV MCH MCHC RDW Plt Count MPV Absolute Neuts (auto) Neutrophils % Neutrophils % (Manual) Band Neutrophils % Lymphocytes % Lymphocytes % (Manual) Monocytes % Monocytes % (Manual) Eosinophils % Eosinophils % (Manual) Basophils % Basophils % (Manual) Myelocytes % (Man) Promyelocytes % (Man) Blast Cells % (Manual) Nucleated RBC % Metamyelocytes Hypochromia Platelet Estimate Polychromasia Poikilocytosis Anisocytosis Microcytosis Macrocytosis PT with INR INR PTT (Actin FS) VBG pH POC VBG pCO2 POC VBG pO2 VBG HCO3 VBG O2 Sat (Lizzie) VBG Base Excess Sodium Potassium Chloride Carbon Dioxide Anion Gap BUN Creatinine Creat Clearance w eGFR POC Glucometer Random Glucose Lactic Acid 3.4 H* Calcium Phosphorus Magnesium Total Bilirubin AST ALT Alkaline Phosphatase Creatine Kinase Creatine Kinase Index CK-MB (CK-2) Troponin I 0.02 B-Natriuretic Peptide Total Protein Albumin Lipase Urine Color Urine Appearance Urine pH Ur Specific [place] Urine Protein Urine Glucose (UA) Urine Ketones Urine Blood Urine Nitrite Urine Bilirubin Urine Urobilinogen Ur Leukocyte Esterase Urine WBC (Auto) Urine RBC (Auto) Urine Casts (Auto) U Epithel Cells (Auto) Urine Bacteria (Auto) Influenza A (Rapid) Negative Influenza B (Rapid) Negative Blood Type Antibody Screen 12/07/18 12/08/18 12/08/18 18:40 05:17 05:30 WBC 12.4 H RBC 4.56 Hgb 12.0 Hct 37.8 MCV 82.8 MCH 26.3 MCHC 31.8 L RDW 13.3 Plt Count 248 MPV 8.3 Absolute Neuts (auto) 10.2 H Neutrophils % 82.4 Neutrophils % (Manual) Band Neutrophils % Lymphocytes % 12.0 D Lymphocytes % (Manual) Monocytes % 5.3 D Monocytes % (Manual) Eosinophils % 0.1 Eosinophils % (Manual) Basophils % 0.2 Basophils % (Manual) Myelocytes % (Man) Promyelocytes % (Man) Blast Cells % (Manual) Nucleated RBC % 0 Metamyelocytes Hypochromia Platelet Estimate Polychromasia Poikilocytosis Anisocytosis Microcytosis Macrocytosis PT with INR INR PTT (Actin FS) VBG pH POC VBG pCO2 POC VBG pO2 VBG HCO3 VBG O2 Sat (Lizzie) VBG Base Excess Sodium Potassium Chloride Carbon Dioxide Anion Gap BUN Creatinine Creat Clearance w eGFR POC Glucometer 150 Random Glucose Lactic Acid 2.5 H* Calcium Phosphorus Magnesium Total Bilirubin AST ALT Alkaline Phosphatase Creatine Kinase Creatine Kinase Index CK-MB (CK-2) Troponin I B-Natriuretic Peptide Total Protein Albumin Lipase Urine Color Urine Appearance Urine pH Ur Specific [place] Urine Protein Urine Glucose (UA) Urine Ketones Urine Blood Urine Nitrite Urine Bilirubin Urine Urobilinogen Ur Leukocyte Esterase Urine WBC (Auto) Urine RBC (Auto) Urine Casts (Auto) U Epithel Cells (Auto) Urine Bacteria (Auto) Influenza A (Rapid) Influenza B (Rapid) Blood Type Antibody Screen 12/08/18 12/08/18 12/08/18 05:30 05:30 05:30 WBC RBC Hgb Hct MCV MCH MCHC RDW Plt Count MPV Absolute Neuts (auto) Neutrophils % Neutrophils % (Manual) Band Neutrophils % Lymphocytes % Lymphocytes % (Manual) Monocytes % Monocytes % (Manual) Eosinophils % Eosinophils % (Manual) Basophils % Basophils % (Manual) Myelocytes % (Man) Promyelocytes % (Man) Blast Cells % (Manual) Nucleated RBC % Metamyelocytes Hypochromia Platelet Estimate Polychromasia Poikilocytosis Anisocytosis Microcytosis Macrocytosis PT with INR INR PTT (Actin FS) VBG pH POC VBG pCO2 POC VBG pO2 VBG HCO3 VBG O2 Sat (Lizzie) VBG Base Excess Sodium 143 Potassium 3.8 Chloride 108 H Carbon Dioxide 26 Anion Gap 9 BUN 12 Creatinine 0.8 Creat Clearance w eGFR 71.76 POC Glucometer Random Glucose 143 H Lactic Acid Calcium 8.4 L Phosphorus 4.2 Magnesium 2.1 Total Bilirubin AST ALT Alkaline Phosphatase Creatine Kinase 913 H Creatine Kinase Index 0.3 CK-MB (CK-2) 3.6 Troponin I 0.03 B-Natriuretic Peptide 294.1 H Total Protein Albumin Lipase Urine Color Urine Appearance Urine pH Ur Specific [place] Urine Protein Urine Glucose (UA) Urine Ketones Urine Blood Urine Nitrite Urine Bilirubin Urine Urobilinogen Ur Leukocyte Esterase Urine WBC (Auto) Urine RBC (Auto) Urine Casts (Auto) U Epithel Cells (Auto) Urine Bacteria (Auto) Influenza A (Rapid) Influenza B (Rapid) Blood Type Antibody Screen 12/08/18 09:12 WBC RBC Hgb Hct MCV MCH MCHC RDW Plt Count MPV Absolute Neuts (auto) Neutrophils % Neutrophils % (Manual) Band Neutrophils % Lymphocytes % Lymphocytes % (Manual) Monocytes % Monocytes % (Manual) Eosinophils % Eosinophils % (Manual) Basophils % Basophils % (Manual) Myelocytes % (Man) Promyelocytes % (Man) Blast Cells % (Manual) Nucleated RBC % Metamyelocytes Hypochromia Platelet Estimate Polychromasia Poikilocytosis Anisocytosis Microcytosis Macrocytosis PT with INR INR PTT (Actin FS) VBG pH POC VBG pCO2 POC VBG pO2 VBG HCO3 VBG O2 Sat (Lizzie) VBG Base Excess Sodium Potassium Chloride Carbon Dioxide Anion Gap BUN Creatinine Creat Clearance w eGFR POC Glucometer Random Glucose Lactic Acid Calcium Phosphorus Magnesium Total Bilirubin AST ALT Alkaline Phosphatase Creatine Kinase Creatine Kinase Index CK-MB (CK-2) Troponin I B-Natriuretic Peptide Total Protein Albumin Lipase Urine Color Urine Appearance Urine pH Ur Specific [place] Urine Protein Urine Glucose (UA) Urine Ketones Urine Blood Urine Nitrite Urine Bilirubin Urine Urobilinogen Ur Leukocyte Esterase Urine WBC (Auto) Urine RBC (Auto) Urine Casts (Auto) U Epithel Cells (Auto) Urine Bacteria (Auto) Influenza A (Rapid) Influenza B (Rapid) Blood Type A POSITIVE Antibody Screen ASSESSMENT/PLAN: Hypertensive Urgency requiring Intravenous Cardene drip DM HTN Sepsis secondary to UTI with right hypdronephrosis and obstructing uretral stone POD #1 cystoscopy/right retrograde pyelogram/right ureteroscopic stone basketing and stent placement Wean Cardene sandro Will need to reach out to patient's pharmacy to see what her home meds are: reports that she "ran out" of her medications for HTN days ago Incentive Spirometry O2 as needed VTE prophylaxis Follow Cultures ABX per ID Glycemic control Requires ICU monitoring while on Cardene drip Dr Lowery Critical care time spent in reviewing chart, evaluating patient and formulating plan - 36 minutes.
[2018-12-08] MEDS ORDERED: cefTRIAXone SODIUM 1 GM VIAL ONE ×2 (11:18→15:29)
[2018-12-08] MEDS ORDERED: DEXTROSE 5%-WATER - 50 ML IVPB ONE ×2 (11:18→15:29)
[2018-12-08] MEDS ORDERED: PT OWN MED DRAWER 7, Y5N ONE ×2 (11:19→15:36)
--- NOTE | 2018-12-08 11:28 | PN ---
Physical Exam: SUBJECTIVE: Patient seen this morning and has no complaints. BP has come down on the drip. OBJECTIVE: Vital Signs Temperature 99.0 F 12/08/18 06:00 Pulse Rate 73 12/08/18 07:44 Respiratory Rate 20 12/08/18 07:44 Blood Pressure 147/75 12/08/18 07:44 O2 Sat by Pulse Oximetry (%) 97 12/08/18 01:09 GENERAL: The patient is awake, alert, and fully oriented, in no acute distress. obese HEAD: Normal with no signs of trauma. EYES: PERRL, extraocular movements intact LUNGS: Breath sounds equal, clear to auscultation bilaterally, no wheezes, no crackles, no accessory muscle use. HEART: Regular rate and rhythm, S1, S2 without murmur, rub or gallop. ABDOMEN: Soft, nontender, nondistended, normoactive bowel sounds, no guarding, no CVA tenderness EXTREMITIES: left leg 1+ pitting edema SKIN: Warm, dry, normal turgor, no rashes or lesions noted CBCD WBC 12.4 K/mm3 (4.0-10.0) H 12/08/18 05:30 RBC 4.56 M/mm3 (3.60-5.2) 12/08/18 05:30 Hgb 12.0 GM/dL (10.7-15.3) 12/08/18 05:30 Hct 37.8 % (32.4-45.2) 12/08/18 05:30 MCV 82.8 fl (80-96) 12/08/18 05:30 MCHC 31.8 g/dl (32.0-36.0) L 12/08/18 05:30 RDW 13.3 % (11.6-15.6) 12/08/18 05:30 Plt Count 248 K/MM3 (134-434) 12/08/18 05:30 MPV 8.3 fl (7.5-11.1) 12/08/18 05:30 CMP Sodium 143 mmol/L (136-145) 12/08/18 05:30 Potassium 3.8 mmol/L (3.5-5.1) 12/08/18 05:30 Chloride 108 mmol/L (98-107) H 12/08/18 05:30 Carbon Dioxide 26 mmol/L (21-32) 12/08/18 05:30 Anion Gap 9 MMOL/L (8-16) 12/08/18 05:30 BUN 12 mg/dL (7-18) 12/08/18 05:30 Creatinine 0.8 mg/dL (0.55-1.3) 12/08/18 05:30 Creat Clearance w eGFR 71.76 (>60) 12/08/18 05:30 Calcium 8.4 mg/dL (8.5-10.1) L 12/08/18 05:30 Total Bilirubin 0.7 mg/dL (0.2-1) 12/07/18 14:00 AST 26 U/L (15-37) 12/07/18 14:00 ALT 30 U/L (13-61) 12/07/18 14:00 Alkaline Phosphatase 70 U/L (45-117) 12/07/18 14:00 Total Protein 8.0 g/dl (6.4-8.2) 12/07/18 14:00 Albumin 3.7 g/dl (3.4-5.0) 12/07/18 14:00 Active Medications Acetaminophen (Tylenol -) 650 mg PO Q4H PRN PRN Reason: PAIN LEVEL 1-5 Atorvastatin Calcium (Lipitor -) 40 mg PO HS [facility] Chlorhexidine Gluconate (Hibiclens For Decolonization -) 1 applic TP HS [facility] Enalapril Maleate (Vasotec -) 20 mg PO DAILY [facility] Ceftriaxone Sodium 1 gm/ (Dextrose) 50 mls @ 100 mls/hr IVPB DAILY [facility]; Protocol Nicardipine HCl 25 mg/ (Dextrose) 250 mls @ 25 mls/hr IVPB TITR [facility]; Protocol Last Admin: 12/08/18 01:41 Dose: 2.5 mg/hr, 25 mls/hr Insulin Aspart (Novolog Vial Sliding Scale -) 1 vial SQ ACHS [facility]; Protocol Last Admin: 12/08/18 06:38 Dose: Not Given Morphine Sulfate (Morphine Sulfate) 2 mg IVPUSH Q4H PRN PRN Reason: PAIN LEVEL 6-10 Mupirocin (Bactroban Ointment (For Decolonization) -) 1 applic NS BID [facility] Stop: 12/13/18 09:59 Ondansetron HCl (Zofran Injection) 4 mg IVPUSH Q6H PRN PRN Reason: NAUSEA AND/OR VOMITING Last Admin: 12/08/18 01:05 Dose: 4 mg ASSESSMENT/PLAN: Patient is a 68 y/o female with a history of NIDDM and HTN who presents for R obstructing nephrolithiasis. Neuro - A& O x3 Cardio - hx of HTN, has not been taking home meds for a few weeks - restarted home medications, enalapril - continue atorvastatin - titrate drip as possible - can add on a second agent for BP control - monitor q4h - f/u Echo Pulm - CXR: prominent hilar markings, widened mediastinum, mild atelectasis at left base - stable off O2 - continue incentive spirometry GI - tolerating diet Nephro - 0.5 x 0.[address] right calculus on abdominal CT - cystoscopy/right retrograde pyelogram/right ureteroscopic stone basketing and stent placement by Stanislav Levin - morphine as needed for pain ID - Ceftriaxone day 2 - afebrile - f/u urine cx: lactose fermenting negative bacilli Endo - 1.4 adrenal adenoma - ss - hold home metformin Heme - DVT ppx with SCD's FEN - low sodium/ diabetic diet - fluids DC Dispo: monitor off drip, can be transferred to med/ surg once off Visit type - Emergency Visit Emergency Visit: No - New Patient This patient is new to me today: Yes Date on this admission: 12/08/18 - Critical Care Critical Care patient: Yes Total Critical Care Time (in minutes): 35 Critical Care Statement: The care of this patient involved high complexity decision making to prevent further life threatening deterioration of the patient 's condition and/or to evaluate & treat vital organ system(s) failure or risk of failure.
--- NOTE | 2018-12-08 12:52 | PN ---
Physical Exam: SUBJECTIVE: Patient seen and examined at bedside. She endorses that she is passing urine with minimal dysuria, and denies hematuria. She denies subjective fevers, chills, chest pain, palpitations, abdominal pain, nausea, vomiting. OBJECTIVE: Vital Signs Period Temp Pulse Resp BP Sys/Mei Pulse Ox Last 24 Hr 98.9 F-102.7 F 73-112 20-174 147-210/69-109 95-98 GENERAL: The patient is awake, alert, and fully oriented, in no acute distress. HEAD: Normocephalic, atraumatic. EYES: PERRL, extraocular movements intact, sclera anicteric, conjunctiva clear. ENT: Oropharynx clear, without erythema or exudates. Moist mucous membranes. NECK: Trachea midline, full range of motion. Supple without lymphadenopathy. LUNGS: Breath sounds equal, clear to auscultation bilaterally, no wheezes, no crackles. No accessory muscle use. HEART: Regular rate and rhythm, S1, S2 without murmur, rub or gallop. ABDOMEN: Obese. Soft, nontender to light and deep palpation x4 quadrants, no rebound tenderness, no guarding. Normoactive bowel sounds. EXTREMITIES: 2+ radial, dorsalis pedis pulses bilaterally. Warm, well-perfused. Trace non-pitting lower extremity edema bilaterally. NEUROLOGICAL: Cranial nerves II through XII grossly intact. Normal speech. No gross focal deficits. PSYCH: Normal mood, normal affect upon my encounter. SKIN: Warm, dry. Laboratory Results - last 24 hr 12/07/18 12/07/18 12/07/18 05:30 14:00 14:00 WBC 6.3 RBC 4.74 Hgb 12.8 Hct 39.6 MCV 83.6 MCH 27.1 MCHC 32.4 RDW 13.3 Plt Count 217 MPV 8.5 Absolute Neuts (auto) 5.8 Neutrophils % 91.1 H Neutrophils % (Manual) 76.5 Band Neutrophils % 8.2 Lymphocytes % 7.2 L Lymphocytes % (Manual) 10.2 Monocytes % 1.2 L Monocytes % (Manual) 4 Eosinophils % 0.2 Eosinophils % (Manual) 0.0 Basophils % 0.3 Basophils % (Manual) 0.0 Myelocytes % (Man) 0 Promyelocytes % (Man) 0 Blast Cells % (Manual) 0 Nucleated RBC % 0 Metamyelocytes 0 Hypochromia 0 Platelet Estimate Normal Polychromasia 0 Poikilocytosis 0 Anisocytosis 1+ Microcytosis 1+ Macrocytosis 0 PT with INR 13.30 H INR 1.13 H PTT (Actin FS) 27.5 VBG pH POC VBG pCO2 POC VBG pO2 VBG HCO3 VBG O2 Sat (Lizzie) VBG Base Excess Sodium Potassium Chloride Carbon Dioxide Anion Gap BUN Creatinine Creat Clearance w eGFR POC Glucometer Random Glucose Lactic Acid Calcium Phosphorus Magnesium Total Bilirubin AST ALT Alkaline Phosphatase Creatine Kinase Creatine Kinase Index CK-MB (CK-2) Troponin I B-Natriuretic Peptide Total Protein Albumin Lipase Urine Color Urine Appearance Urine pH Ur Specific [place] Urine Protein Urine Glucose (UA) Urine Ketones Urine Blood Urine Nitrite Urine Bilirubin Urine Urobilinogen Ur Leukocyte Esterase Urine WBC (Auto) Urine RBC (Auto) Urine Casts (Auto) U Epithel Cells (Auto) Urine Bacteria (Auto) Influenza A (Rapid) Influenza B (Rapid) Blood Type A POSITIVE Antibody Screen Negative 12/07/18 12/07/18 12/07/18 14:00 14:00 14:00 WBC RBC Hgb Hct MCV MCH MCHC RDW Plt Count MPV Absolute Neuts (auto) Neutrophils % Neutrophils % (Manual) Band Neutrophils % Lymphocytes % Lymphocytes % (Manual) Monocytes % Monocytes % (Manual) Eosinophils % Eosinophils % (Manual) Basophils % Basophils % (Manual) Myelocytes % (Man) Promyelocytes % (Man) Blast Cells % (Manual) Nucleated RBC % Metamyelocytes Hypochromia Platelet Estimate Polychromasia Poikilocytosis Anisocytosis Microcytosis Macrocytosis PT with INR INR PTT (Actin FS) VBG pH 7.39 POC VBG pCO2 47.2 POC VBG pO2 28.0 L VBG HCO3 27.7 VBG O2 Sat (Lizzie) 48.9 L VBG Base Excess 2.5 H Sodium 142 Potassium 3.7 Chloride 107 Carbon Dioxide 30 Anion Gap 5 L BUN 16 Creatinine 1.1 Creat Clearance w eGFR 49.69 POC Glucometer Random Glucose 105 Lactic Acid Calcium 8.8 Phosphorus Magnesium Total Bilirubin 0.7 AST 26 ALT 30 Alkaline Phosphatase 70 Creatine Kinase Creatine Kinase Index CK-MB (CK-2) Troponin I B-Natriuretic Peptide Total Protein 8.0 Albumin 3.7 Lipase 169 Urine Color Yellow Urine Appearance Clear Urine pH 6.5 Ur Specific [place] 1.007 L Urine Protein Negative Urine Glucose (UA) Negative Urine Ketones Negative Urine Blood 2+ H Urine Nitrite Negative Urine Bilirubin Negative Urine Urobilinogen 0.2 Ur Leukocyte Esterase Trace Urine WBC (Auto) 5 Urine RBC (Auto) 49 Urine Casts (Auto) 3 U Epithel Cells (Auto) 1.4 Urine Bacteria (Auto) 57.6 Influenza A (Rapid) Influenza B (Rapid) Blood Type Antibody Screen 12/07/18 12/07/18 12/07/18 14:00 14:00 14:25 WBC RBC Hgb Hct MCV MCH MCHC RDW Plt Count MPV Absolute Neuts (auto) Neutrophils % Neutrophils % (Manual) Band Neutrophils % Lymphocytes % Lymphocytes % (Manual) Monocytes % Monocytes % (Manual) Eosinophils % Eosinophils % (Manual) Basophils % Basophils % (Manual) Myelocytes % (Man) Promyelocytes % (Man) Blast Cells % (Manual) Nucleated RBC % Metamyelocytes Hypochromia Platelet Estimate Polychromasia Poikilocytosis Anisocytosis Microcytosis Macrocytosis PT with INR INR PTT (Actin FS) VBG pH POC VBG pCO2 POC VBG pO2 VBG HCO3 VBG O2 Sat (Lizzie) VBG Base Excess Sodium Potassium Chloride Carbon Dioxide Anion Gap BUN Creatinine Creat Clearance w eGFR POC Glucometer Random Glucose Lactic Acid 3.4 H* Calcium Phosphorus Magnesium Total Bilirubin AST ALT Alkaline Phosphatase Creatine Kinase Creatine Kinase Index CK-MB (CK-2) Troponin I 0.02 B-Natriuretic Peptide Total Protein Albumin Lipase Urine Color Urine Appearance Urine pH Ur Specific [place] Urine Protein Urine Glucose (UA) Urine Ketones Urine Blood Urine Nitrite Urine Bilirubin Urine Urobilinogen Ur Leukocyte Esterase Urine WBC (Auto) Urine RBC (Auto) Urine Casts (Auto) U Epithel Cells (Auto) Urine Bacteria (Auto) Influenza A (Rapid) Negative Influenza B (Rapid) Negative Blood Type Antibody Screen 12/07/18 12/08/18 12/08/18 18:40 05:17 05:30 WBC 12.4 H RBC 4.56 Hgb 12.0 Hct 37.8 MCV 82.8 MCH 26.3 MCHC 31.8 L RDW 13.3 Plt Count 248 MPV 8.3 Absolute Neuts (auto) 10.2 H Neutrophils % 82.4 Neutrophils % (Manual) Band Neutrophils % Lymphocytes % 12.0 D Lymphocytes % (Manual) Monocytes % 5.3 D Monocytes % (Manual) Eosinophils % 0.1 Eosinophils % (Manual) Basophils % 0.2 Basophils % (Manual) Myelocytes % (Man) Promyelocytes % (Man) Blast Cells % (Manual) Nucleated RBC % 0 Metamyelocytes Hypochromia Platelet Estimate Polychromasia Poikilocytosis Anisocytosis Microcytosis Macrocytosis PT with INR INR PTT (Actin FS) VBG pH POC VBG pCO2 POC VBG pO2 VBG HCO3 VBG O2 Sat (Lizzie) VBG Base Excess Sodium Potassium Chloride Carbon Dioxide Anion Gap BUN Creatinine Creat Clearance w eGFR POC Glucometer 150 Random Glucose Lactic Acid 2.5 H* Calcium Phosphorus Magnesium Total Bilirubin AST ALT Alkaline Phosphatase Creatine Kinase Creatine Kinase Index CK-MB (CK-2) Troponin I B-Natriuretic Peptide Total Protein Albumin Lipase Urine Color Urine Appearance Urine pH Ur Specific [place] Urine Protein Urine Glucose (UA) Urine Ketones Urine Blood Urine Nitrite Urine Bilirubin Urine Urobilinogen Ur Leukocyte Esterase Urine WBC (Auto) Urine RBC (Auto) Urine Casts (Auto) U Epithel Cells (Auto) Urine Bacteria (Auto) Influenza A (Rapid) Influenza B (Rapid) Blood Type Antibody Screen 12/08/18 12/08/18 12/08/18 05:30 05:30 05:30 WBC RBC Hgb Hct MCV MCH MCHC RDW Plt Count MPV Absolute Neuts (auto) Neutrophils % Neutrophils % (Manual) Band Neutrophils % Lymphocytes % Lymphocytes % (Manual) Monocytes % Monocytes % (Manual) Eosinophils % Eosinophils % (Manual) Basophils % Basophils % (Manual) Myelocytes % (Man) Promyelocytes % (Man) Blast Cells % (Manual) Nucleated RBC % Metamyelocytes Hypochromia Platelet Estimate Polychromasia Poikilocytosis Anisocytosis Microcytosis Macrocytosis PT with INR INR PTT (Actin FS) VBG pH POC VBG pCO2 POC VBG pO2 VBG HCO3 VBG O2 Sat (Lizzie) VBG Base Excess Sodium 143 Potassium 3.8 Chloride 108 H Carbon Dioxide 26 Anion Gap 9 BUN 12 Creatinine 0.8 Creat Clearance w eGFR 71.76 POC Glucometer Random Glucose 143 H Lactic Acid Calcium 8.4 L Phosphorus 4.2 Magnesium 2.1 Total Bilirubin AST ALT Alkaline Phosphatase Creatine Kinase 913 H Creatine Kinase Index 0.3 CK-MB (CK-2) 3.6 Troponin I 0.03 B-Natriuretic Peptide 294.1 H Total Protein Albumin Lipase Urine Color Urine Appearance Urine pH Ur Specific [place] Urine Protein Urine Glucose (UA) Urine Ketones Urine Blood Urine Nitrite Urine Bilirubin Urine Urobilinogen Ur Leukocyte Esterase Urine WBC (Auto) Urine RBC (Auto) Urine Casts (Auto) U Epithel Cells (Auto) Urine Bacteria (Auto) Influenza A (Rapid) Influenza B (Rapid) Blood Type Antibody Screen 12/08/18 09:12 WBC RBC Hgb Hct MCV MCH MCHC RDW Plt Count MPV Absolute Neuts (auto) Neutrophils % Neutrophils % (Manual) Band Neutrophils % Lymphocytes % Lymphocytes % (Manual) Monocytes % Monocytes % (Manual) Eosinophils % Eosinophils % (Manual) Basophils % Basophils % (Manual) Myelocytes % (Man) Promyelocytes % (Man) Blast Cells % (Manual) Nucleated RBC % Metamyelocytes Hypochromia Platelet Estimate Polychromasia Poikilocytosis Anisocytosis Microcytosis Macrocytosis PT with INR INR PTT (Actin FS) VBG pH POC VBG pCO2 POC VBG pO2 VBG HCO3 VBG O2 Sat (Lizzie) VBG Base Excess Sodium Potassium Chloride Carbon Dioxide Anion Gap BUN Creatinine Creat Clearance w eGFR POC Glucometer Random Glucose Lactic Acid Calcium Phosphorus Magnesium Total Bilirubin AST ALT Alkaline Phosphatase Creatine Kinase Creatine Kinase Index CK-MB (CK-2) Troponin I B-Natriuretic Peptide Total Protein Albumin Lipase Urine Color Urine Appearance Urine pH Ur Specific [place] Urine Protein Urine Glucose (UA) Urine Ketones Urine Blood Urine Nitrite Urine Bilirubin Urine Urobilinogen Ur Leukocyte Esterase Urine WBC (Auto) Urine RBC (Auto) Urine Casts (Auto) U Epithel Cells (Auto) Urine Bacteria (Auto) Influenza A (Rapid) Influenza B (Rapid) Blood Type A POSITIVE Antibody Screen Active Medications Generic Name Dose Route Start Last Admin Trade Name Freq PRN Reason Stop Dose Admin Acetaminophen 650 mg 12/07/18 22:58 Tylenol - PO Q4H PRN PAIN LEVEL 1-5 Atorvastatin Calcium 40 mg 12/08/18 22:00 Lipitor - PO HS [facility] Chlorhexidine Gluconate 1 applic 12/08/18 22:00 Hibiclens For Decolonization - TP HS [facility] Enalapril Maleate 20 mg 12/08/18 11:00 Vasotec - PO DAILY [facility] Ceftriaxone Sodium 1 gm/ 50 mls @ 100 mls/hr 12/08/18 10:00 Dextrose IVPB DAILY [facility] Protocol Nicardipine HCl 25 mg/ 250 mls @ 25 mls/hr 12/08/18 01:15 12/08/18 01:41 Dextrose IVPB 2.5 mg/hr TITR GOVIND 25 mls/hr Administration Protocol 2.5 MG/HR Insulin Aspart 1 vial 12/08/18 07:00 12/08/18 06:38 Novolog Vial Sliding Scale - SQ Not Given ACHS GOVIND Protocol Morphine Sulfate 2 mg 12/07/18 22:58 Morphine Sulfate IVPUSH Q4H PRN PAIN LEVEL 6-10 Mupirocin 1 applic 12/08/18 10:00 Bactroban Ointment (For Decolonization) - NS 12/13/18 09:59 BID GOVIND Ondansetron HCl 4 mg 12/08/18 00:35 12/08/18 01:05 Zofran Injection IVPUSH 4 mg Q6H PRN Administration NAUSEA AND/OR VOMITING ASSESSMENT/PLAN: Patient is a 68 year old female with history of hypertension, non-insulin dependent diabetes mellitus, presented with dysuria. Sepsis secondary to acute complicated urinary tract infection -CT scan on admission showed 0.5 x 0.3 obsructing right sided renal calculus -Patient is S/P cystoscopy, right retrograde pyelogram, right ureteroscopic stone basketing and stent placement. -Patient is on Ceftriaxone 1 gram IV daily -Follow urine cultures -Urology consult (Dr. Lugo) appreciated -Pain control with Tylenol -Morphine 2mg IV Q6H PRN for breakthrough pain Hypertensive urgency -Improving. Patient is on Cardene drip in ICU -Reinstate Enalapril 20mg PO daily -Monitor vital signs closely -Nephrology consult (Dr. Carrillo) appreciated. Diabetes mellitus -Holding home medications. -Insulin sliding scale ACHS -Fingerstick blood glucose monitoring ACHS Hyperlipidemia -Atorvastatin 40mg PO HS FEN -No IV fluids. Encourage judicious oral hydration -Follow CMP -Diabetic, sodium controlled diet Prophylaxis -SCDs bilateral lower extremities Disposition -Continue care in ICU Visit type - Emergency Visit Emergency Visit: Yes ED Registration Date: 12/07/18 Care time: The patient presented to the Emergency Department on the above date and was hospitalized for further evaluation of their emergent condition. - New Patient This patient is new to me today: Yes Date on this admission: 12/08/18 - Critical Care Critical Care patient: Yes Total Critical Care Time (in minutes): 35 Critical Care Statement: The care of this patient involved high complexity decision making to prevent further life threatening deterioration of the patient 's condition and/or to evaluate & treat vital organ system(s) failure or risk of failure. - Discharge Referral Referred to [facility] No
--- NOTE | 2018-12-08 13:01 | ECHO ---
Name: MASHA SCHULZ Exam:Adult Echocardiogram Study Date: 12/08/2018 11:20 AM Age: 68 yrs Reason For Study: R/O Endocarditis Height: 62 in Weight: 350 lb BSA: 2.4 m2 MMode/2D Measurements & Calculations IVSd: 1.3 cm Ao root diam: 2.7 cm LVIDd: 3.8 cm LA dimension: 3.5 cm LVIDs: 2.3 cm LVPWd: 1.0 cm EDV(Teich): 61.6 ml LVOT diam: 2.0 cm ESV(Teich): 17.9 ml Doppler Measurements & Calculations MV E max vinicio: 63.5 cm/sec Ao V2 max: 201.6 cm/sec MV A max vinicio: 113.5 cm/sec Ao max P.3 mmHg MV E/A: 0.56 Ao V2 mean: 138.6 cm/sec MV dec time: 0.09 sec Ao mean P.7 mmHg Ao V2 VTI: 38.3 cm KATYA(I,D): 1.8 cm2 KATYA(V,D): 2.2 cm2 LV V1 max P.4 mmHg SV(LVOT): 69.1 ml LV V1 mean P.1 mmHg LV V1 max: 144.5 cm/sec LV V1 mean: 92.6 cm/sec LV V1 VTI: 22.2 cm TR max vinicio: 195.5 cm/sec PA V2 max: 129.0 cm/sec TR max P.3 mmHg PA max P.7 mmHg PI Vmax: 142.5 cm/sec Left Ventricle There is mild concentric left ventricular hypertrophy. Left ventricular systolic function is normal. Ejection Fraction = 55-60%. The transmitral spectral Doppler flow pattern is suggestive of impaired LV relaxat ion. Right Ventricle The right ventricle is normal in size and function. Atria Normal left and right atrial size and function. Mitral Valve The mitral valve is normal in structure and function. There is no mitral valve stenosis. There is mil d mitral regurgitation. Tricuspid Valve The tricuspid valve is normal in structure and function. There is mild tricuspid regurgitation. Aortic Valve The aortic valve opens well. No hemodynamically significant valvular aortic stenosis. No aortic regur gitation is present. Pulmonic Valve The pulmonic valve is not well seen, but is grossly normal. There is no pulmonic valvular stenosis. M ild pulmonic valvular regurgitation. Great Vessels The aortic root is normal size. Pericardium/Pleura There is no pericardial effusion. Interpretation Summary Left ventricular systolic function is normal. There is mild concentric left ventricular hypertrophy. The right ventricle is normal in size and function. The transmitral spectral Doppler flow pattern is suggestive of impaired LV relaxation. There is mild mitral regurgitation. There is mild tricuspid regurgitation. There is no pericardial effusion. MD Wheeler *Maikol 12/08/2018 01:00 PM
[2018-12-08] MEDS ORDERED: amLODIPine BESYLATE 5 MG TABLET (FP) PO SCH (13:15)
--- NOTE | 2018-12-08 14:51 | PN ---
Progress Note (short form) - Note Progress Note: Post op day#1.S/P Cystoscopy with ureteroscopy and stent placement under GA uneventful.P81,BP166/87 and Spo2 96 on RA.Patient stable.No any anesthesia related problem.Patient DC from the anesthesia care.
--- NOTE | 2018-12-08 15:04 | CONSULT ---
Consult Consult Specialty:: Nephrology Reason for Consultation:: HTN - History of Present Illness Chief Complaint: abdominal pain History of Present Illness: Pt is a 68 year old female with pmhx morbid obesity, hypertension and diabetes mellitus who presented with abdominal pain. She was found to have a kidney stone and was taken to OR. She had a stone causing right hydro. She was found to be hypertensive after surgery and was transferred to ICU. She has been on a cardene drip. I was called to evaluate her. She has history of non compliance per her daughter and has not been taking her meds. I am not her PMD, family do not know who the PMD is. She currently denies fevers or chills. - History Source History Provided By: Patient, Medical Record - Past Medical History Cardio/Vascular: Yes: HTN Renal/: Yes: Renal Calculi Endocrine: Yes: Diabetes Mellitus - Alcohol/Substance Use Hx Alcohol Use: No - Smoking History Smoking history: Current every day smoker Have you smoked in the past 12 months: No Home Medications - Allergies Allergies/Adverse Reactions: Allergies Allergy/AdvReac Type Severity Reaction Status Date / Time No Known Allergies Allergy Verified 12/07/18 13:18 - Home Medications Home Medications: Ambulatory Orders Atorvastatin Ca [Lipitor] 40 mg PO HS 12/08/18 Enalapril Maleate [Vasotec] 20 mg PO DAILY 12/08/18 metFORMIN HCL [Metformin HCl] 500 mg PO BID 12/08/18 Family Disease History - Family Disease History Family History: Denies Review of Systems - Review of Systems Constitutional: reports: Malaise Eyes: reports: No Symptoms HENT: reports: No Symptoms Neck: reports: No Symptoms Cardiovascular: reports: No Symptoms Respiratory: reports: No Symptoms Gastrointestinal: reports: Abdominal Pain Genitourinary: reports: No Symptoms Musculoskeletal: reports: No Symptoms Integumentary: reports: No Symptoms Neurological: reports: No Symptoms Endocrine: reports: No Symptoms Hematology/Lymphatic: reports: No Symptoms Psychiatric: reports: No Symptoms Physical Exam Vital Signs: Vital Signs Temperature 99.0 F 12/08/18 06:00 Pulse Rate 84 12/08/18 13:00 Respiratory Rate 20 12/08/18 13:00 Blood Pressure 179/82 H 12/08/18 13:00 O2 Sat by Pulse Oximetry (%) 97 12/08/18 10:00 Constitutional: Yes: Calm Eyes: Yes: Conjunctiva Clear HENT: Yes: Atraumatic Cardiovascular: Yes: S1, S2 Respiratory: Yes: CTA Bilaterally Gastrointestinal: Yes: Soft Renal/: Yes: WNL Musculoskeletal: Yes: WNL Extremities: Yes: WNL Edema: Yes Edema: LLE: Trace, RLE: Trace Neurological: Yes: Oriented Psychiatric: Yes: Oriented Labs: CBC, BMP 12/08/18 05:30 12/08/18 05:30 Selected Entries 12/08/18 12/08/18 12/08/18 06:00 07:44 11:00 Blood Pressure 149/85 147/75 156/74 12/08/18 13:00 Blood Pressure 179/82 H Laboratory Tests 12/07/18 12/07/18 12/07/18 14:00 14:00 14:00 WBC 6.3 Creatinine 1.1 Lactic Acid 3.4 H* 12/07/18 12/08/18 18:40 05:30 WBC Creatinine 0.8 Lactic Acid 2.5 H* Imaging - Results Cat Scan: Report Reviewed Problem List - Problems (1) HTN (hypertension) Code(s): I10 - ESSENTIAL (PRIMARY) HYPERTENSION (2) Nephrolithiasis Code(s): N20.0 - CALCULUS OF KIDNEY Assessment/Plan Current Medications Generic Name Dose Route Start Last Admin Trade Name Freq PRN Reason Stop Dose Admin Acetaminophen 650 mg 12/07/18 22:58 Tylenol - PO Q4H PRN PAIN LEVEL 1-5 Amlodipine Besylate 5 mg 12/08/18 13:15 Norvasc - PO DAILY [facility] Atorvastatin Calcium 40 mg 12/08/18 22:00 Lipitor - PO HS [facility] Chlorhexidine Gluconate 1 applic 12/08/18 22:00 Hibiclens For Decolonization - TP HS [facility] Enalapril Maleate 20 mg 12/08/18 11:00 Vasotec - PO DAILY [facility] Ceftriaxone Sodium 1 gm/ 50 mls @ 100 mls/hr 12/08/18 10:00 Dextrose IVPB DAILY [facility] Protocol Insulin Aspart 1 vial 12/08/18 07:00 12/08/18 13:46 Novolog Vial Sliding Scale - SQ Not Given ACHS [facility] Protocol Morphine Sulfate 2 mg 12/07/18 22:58 Morphine Sulfate IVPUSH Q4H PRN PAIN LEVEL 6-10 Mupirocin 1 applic 12/08/18 10:00 Bactroban Ointment (For Decolonization) - NS 12/13/18 09:59 BID GOVIND Ondansetron HCl 4 mg 12/08/18 00:35 12/08/18 01:05 Zofran Injection IVPUSH 4 mg Q6H PRN Administration NAUSEA AND/OR VOMITING Impression 1. hypertensive urgency 2. nephrolithiasis 3. DM 4. htn 5. obesity Plan - restart po bp meds and titrate down cardene - avoid a drop in bp of more than 25 percent of map - pt likely not compliance with home bp meds as last she filled her meds was in August, per her daughter - ICU while on Cardene drip - monitor renal function - urology input appreciated - recommend weight loss
[2018-12-08] MEDS ORDERED: ACETAMINOPHEN 325 MG TABLET (FP) PO PRN ×2 (18:28→23:10)
[2018-12-08] MEDS ORDERED: morphine SULFATE 4 MG/ML VIAL IVPUSH PRN ×2 (18:28→23:10)
--- NOTE | 2018-12-08 20:20 | PN ---
Teaching Attending Note Name of Resident: Miguel Salvador ATTENDING PHYSICIAN STATEMENT I saw and evaluated the patient. I reviewed the resident's note and discussed the case with the resident. I agree with the resident's findings and plan as documented. SUBJECTIVE: Feeling better, no pain. Fever resolved. No dysuria/hematuria OBJECTIVE: Fever resolved, Hemodynamically Stable. Last Vital Signs Temp Pulse Resp BP Pulse Ox 99.0 F 89 20 148/88 97 12/08/18 06:00 12/08/18 15:00 12/08/18 15:00 12/08/18 15:00 12/08/18 10:00 HEENT - Atraumatic, Normocephalic. Heart - S1, S2, RRR Lungs - claear to auscultation Abdomen - High BMI. Soft, non-tender. Bowel Sounds normal. Extremities - no calf tenderness Laboratory Results - last 24 hr 12/07/18 12/07/18 12/08/18 05:30 18:40 05:17 WBC RBC Hgb Hct MCV MCH MCHC RDW Plt Count MPV Absolute Neuts (auto) Neutrophils % Lymphocytes % Monocytes % Eosinophils % Basophils % Nucleated RBC % Sodium Potassium Chloride Carbon Dioxide Anion Gap BUN Creatinine Creat Clearance w eGFR POC Glucometer 150 Random Glucose Lactic Acid 2.5 H* Calcium Phosphorus Magnesium Creatine Kinase Creatine Kinase Index CK-MB (CK-2) Troponin I B-Natriuretic Peptide Blood Type A POSITIVE Antibody Screen Negative 12/08/18 12/08/18 12/08/18 05:30 05:30 05:30 WBC 12.4 H RBC 4.56 Hgb 12.0 Hct 37.8 MCV 82.8 MCH 26.3 MCHC 31.8 L RDW 13.3 Plt Count 248 MPV 8.3 Absolute Neuts (auto) 10.2 H Neutrophils % 82.4 Lymphocytes % 12.0 D Monocytes % 5.3 D Eosinophils % 0.1 Basophils % 0.2 Nucleated RBC % 0 Sodium 143 Potassium 3.8 Chloride 108 H Carbon Dioxide 26 Anion Gap 9 BUN 12 Creatinine 0.8 Creat Clearance w eGFR 71.76 POC Glucometer Random Glucose 143 H Lactic Acid Calcium 8.4 L Phosphorus 4.2 Magnesium 2.1 Creatine Kinase Creatine Kinase Index CK-MB (CK-2) Troponin I B-Natriuretic Peptide 294.1 H Blood Type Antibody Screen 12/08/18 12/08/18 12/08/18 05:30 09:12 13:16 WBC RBC Hgb Hct MCV MCH MCHC RDW Plt Count MPV Absolute Neuts (auto) Neutrophils % Lymphocytes % Monocytes % Eosinophils % Basophils % Nucleated RBC % Sodium Potassium Chloride Carbon Dioxide Anion Gap BUN Creatinine Creat Clearance w eGFR POC Glucometer 140 Random Glucose Lactic Acid Calcium Phosphorus Magnesium Creatine Kinase 913 H Creatine Kinase Index 0.3 CK-MB (CK-2) 3.6 Troponin I 0.03 B-Natriuretic Peptide Blood Type A POSITIVE Antibody Screen 12/08/18 17:05 WBC RBC Hgb Hct MCV MCH MCHC RDW Plt Count MPV Absolute Neuts (auto) Neutrophils % Lymphocytes % Monocytes % Eosinophils % Basophils % Nucleated RBC % Sodium Potassium Chloride Carbon Dioxide Anion Gap BUN Creatinine Creat Clearance w eGFR POC Glucometer 137 Random Glucose Lactic Acid Calcium Phosphorus Magnesium Creatine Kinase Creatine Kinase Index CK-MB (CK-2) Troponin I B-Natriuretic Peptide Blood Type Antibody Screen Current Medications Generic Name Dose Route Start Last Admin Trade Name Freq PRN Reason Stop Dose Admin Acetaminophen 650 mg 12/08/18 18:28 Tylenol - PO Q4H PRN PAIN LEVEL 1-5 Amlodipine Besylate 5 mg 12/09/18 10:00 Norvasc - PO DAILY REPLACED BY [facility] Atorvastatin Calcium 40 mg 12/08/18 22:00 Lipitor - PO HS REPLACED BY [facility] Chlorhexidine Gluconate 1 applic 12/08/18 22:00 Hibiclens For Decolonization - TP HS REPLACED BY [facility] Enalapril Maleate 20 mg 12/09/18 10:00 Vasotec - PO DAILY REPLACED BY [facility] Ceftriaxone Sodium 1 gm/ 50 mls @ 100 mls/hr 12/09/18 10:00 Dextrose IVPB DAILY REPLACED BY [facility] Protocol Insulin Aspart 1 vial 12/08/18 22:00 Novolog Vial Sliding Scale - SQ ACHS REPLACED BY [facility] Protocol Morphine Sulfate 2 mg 12/08/18 18:28 Morphine Sulfate IVPUSH Q4H PRN PAIN LEVEL 6-10 Mupirocin 1 applic 12/08/18 22:00 Bactroban Ointment (For Decolonization) - NS 12/13/18 09:59 BID REPLACED BY [facility] Ondansetron HCl 4 mg 12/08/18 18:28 Zofran Injection IVPUSH Q6H PRN NAUSEA AND/OR VOMITING ASSESSMENT AND PLAN: 68 year old female with history of DM 2, HTN, HLD, presented with R sided abdominal/flank discomfort, vomiting, fever (up to 102.7 on presentation). CT A/P - 0.5x0.3cm obstructive R ureteral stone causing hydronephrosis, additional b/l non-obstructing renal stones, bladder calculi, and incidental adrenal adenoma. 1. Sepsis secondary to UTI - secondary to obstruction due to R ureteral stone POD 1 s/p Cystoscopy with R retrogradr pyelogram with R Ureteroscopic stone basketing and ureteral stenting. Sepsis resolved. On Ceftriaxone. Urine Cx - LFNB - awaiting final ID and sensitivity for further Abx tailoring. 2. Uncontrolled HTN post-op requiring Nicardipine drip and ICU stay For weaning off Nicardipine drip. Will add Norvasc 10 to home med Enalapril 20. 3. HLD - continue Statin. 4. Mild Rhabdo with CPK elevated to 913 - will monitor response to IV hydration DVT Px - will start Heparin SQ (no reported hematuria)
[2018-12-08] MEDS: ATORVASTATIN CA 40 MG TABLET (FP) PO SCH ×2 (21:28→22:44)
[2018-12-08] MEDS ORDERED: ATORVASTATIN CA 40 MG TABLET (FP) PO SCH (22:00)
[2018-12-08] MEDS ORDERED: INSULIN SLIDING SCALE (NOVOLOG) 1 VIAL SQ SCH (22:00)
[2018-12-08] MEDS ORDERED: CHLORHEXIDINE GLUCONATE 4% CLEANSER FOR DECOLONIZATION TP SCH ×2 (22:00)
[2018-12-08] MEDS ORDERED: amLODIPine BESYLATE 5 MG TABLET (FP) PO ONE (22:27)
[2018-12-08] MEDS ORDERED: INSULIN (NOVOLOG) ASPART 100 UNITS/ML 10ML VIAL ONE (22:34)
[2018-12-09] MEDS: INSULIN SLIDING SCALE (NOVOLOG) 1 VIAL SQ SCH ×4 (06:19→21:47)
[2018-12-09] MEDS ORDERED: INSULIN (NOVOLOG) ASPART 100 UNITS/ML 10ML VIAL ONE (06:25)
[2018-12-09 07:49] LABS: HEMATOCRIT 34.9 % (32.4-45.2); HEMOGLOBIN 11.1 GM/dL (10.7-15.3); MCH 26.8 pg (25.7-33.7); MCHC 31.8 g/dl (32.0-36.0); MEAN CELL VOLUME 84.3 fl (80-96); MEAN PLT VOLUME 8.6 fl (7.5-11.1); PLATELET COUNT 202 K/MM3 (134-434); RBC 4.14 M/mm3 (3.60-5.2); RDW 13.5 % (11.6-15.6); WHITE BLOOD COUNT 7.3 K/mm3 (4.0-10.0)
[2018-12-09 07:52] LABS: ALBUMIN 2.8 g/dl (3.4-5.0); ALK PHOS 52 U/L (45-117); ANION GAP 4 MMOL/L (8-16); BILIRUBIN,TOTAL 0.5 mg/dL (0.2-1); BLOOD UREA NITROGEN 14 mg/dL (7-18); CALCIUM 8.4 mg/dL (8.5-10.1); CHLORIDE 107 mmol/L (98-107); CO2 29 mmol/L (21-32); CREATININE 0.8 mg/dL (0.55-1.3); GLUCOSE,RANDOM 113 mg/dL (74-106); MAGNESIUM 2.3 mg/dL (1.8-2.4); PHOSPHOROUS 4.6 mg/dL (2.5-4.9); POTASSIUM 3.9 mmol/L (3.5-5.1); SGOT/AST 22 U/L (15-37); SGPT/ALT 25 U/L (13-61); SODIUM 141 mmol/L (136-145); TOT PROT 6.7 g/dl (6.4-8.2)
[2018-12-09] MEDS ORDERED: MUPIROCIN 2% TOPICAL OINTMENT FOR DECOLONIZATION NS SCH (10:00)
[2018-12-09] MEDS ORDERED: amLODIPine BESYLATE 10 MG TABLET (FP) PO SCH (10:00)
[2018-12-09] MEDS ORDERED: CEFTRIAXONE 1 GM in DEXTROSE 5%-WATER - 50 ML IVPB SCH (10:00)
[2018-12-09] MEDS ORDERED: amLODIPine BESYLATE 5 MG TABLET (FP) PO SCH ×3 (10:00→11:35)
[2018-12-09] MEDS ORDERED: ENALAPRIL MALEATE 10 MG TABLET (FP) PO SCH (10:00)
[2018-12-09] MEDS ORDERED: DEXTROSE 5%-WATER - 50 ML IVPB ONE (10:59)
[2018-12-09] MEDS ORDERED: cefTRIAXone SODIUM 1 GM VIAL ONE (10:59)
[2018-12-09] MEDS: ENALAPRIL MALEATE 10 MG TABLET (FP) PO SCH (11:12)
[2018-12-09] MEDS: CEFTRIAXONE 1 GM in DEXTROSE 5%-WATER - 50 ML IVPB SCH (11:13)
[2018-12-09] MEDS: amLODIPine BESYLATE 5 MG TABLET (FP) PO SCH (11:40)
--- NOTE | 2018-12-09 11:54 | PN ---
Teaching Attending Note Name of Resident: Miguel Salvador ATTENDING PHYSICIAN STATEMENT I saw and evaluated the patient. I reviewed the resident's note and discussed the case with the resident. I agree with the resident's findings and plan as documented. SUBJECTIVE: Feeling better, no pain. Fever resolved. No dysuria/hematuria OBJECTIVE: Fever resolved, Hemodynamically Stable. Last Vital Signs Temp Pulse Resp BP Pulse Ox 98.2 F 85 22 H 151/92 97 12/09/18 09:00 12/09/18 09:00 12/09/18 09:00 12/09/18 09:00 12/08/18 21:00 Heart - S1, S2, RRR Lungs - claear to auscultation Abdomen - High BMI. Soft, non-tender. Bowel Sounds normal. Extremities - no calf tenderness Laboratory Results - last 24 hr 12/08/18 12/08/18 12/08/18 13:16 17:05 21:22 WBC RBC Hgb Hct MCV MCH MCHC RDW Plt Count MPV Sodium Potassium Chloride Carbon Dioxide Anion Gap BUN Creatinine Creat Clearance w eGFR POC Glucometer 140 137 166 Random Glucose Calcium Phosphorus Magnesium Total Bilirubin AST ALT Alkaline Phosphatase Creatine Kinase Creatine Kinase Index CK-MB (CK-2) Total Protein Albumin 12/09/18 12/09/18 12/09/18 06:16 06:35 06:35 WBC 7.3 RBC 4.14 Hgb 11.1 Hct 34.9 MCV 84.3 MCH 26.8 MCHC 31.8 L RDW 13.5 Plt Count 202 MPV 8.6 Sodium 141 Potassium 3.9 Chloride 107 Carbon Dioxide 29 Anion Gap 4 L BUN 14 Creatinine 0.8 Creat Clearance w eGFR 71.76 POC Glucometer 114 Random Glucose 113 H Calcium 8.4 L Phosphorus 4.6 Magnesium 2.3 Total Bilirubin 0.5 AST 22 ALT 25 Alkaline Phosphatase 52 Creatine Kinase 556 H Creatine Kinase Index 0.3 CK-MB (CK-2) 1.8 Total Protein 6.7 Albumin 2.8 L 12/09/18 11:16 WBC RBC Hgb Hct MCV MCH MCHC RDW Plt Count MPV Sodium Potassium Chloride Carbon Dioxide Anion Gap BUN Creatinine Creat Clearance w eGFR POC Glucometer 120 Random Glucose Calcium Phosphorus Magnesium Total Bilirubin AST ALT Alkaline Phosphatase Creatine Kinase Creatine Kinase Index CK-MB (CK-2) Total Protein Albumin Current Medications Generic Name Dose Route Start Last Admin Trade Name Freq PRN Reason Stop Dose Admin Acetaminophen 650 mg 12/08/18 23:10 Tylenol - PO Q4H PRN PAIN LEVEL 1-5 Amlodipine Besylate 10 mg 12/09/18 11:45 12/09/18 11:40 Norvasc - PO 10 mg DAILY [facility] Administration Atorvastatin Calcium 40 mg 12/09/18 22:00 Lipitor - PO HS [facility] Enalapril Maleate 20 mg 12/09/18 10:00 12/09/18 11:12 Vasotec - PO 20 mg DAILY [facility] Administration Heparin Sodium (Porcine) 5,000 unit 12/09/18 14:00 Heparin - SQ TID [facility] Ceftriaxone Sodium 1 gm/ 50 mls @ 100 mls/hr 12/09/18 10:00 12/09/18 11:13 Dextrose IVPB 100 mls/hr DAILY [facility] Administration Protocol Insulin Aspart 1 vial 12/09/18 07:00 12/09/18 11:33 Novolog Vial Sliding Scale - SQ Not Given ACHS [facility] Protocol Morphine Sulfate 2 mg 12/08/18 23:10 Morphine Sulfate IVPUSH Q4H PRN PAIN LEVEL 6-10 Ondansetron HCl 4 mg 12/08/18 23:10 Zofran Injection IVPUSH Q6H PRN NAUSEA AND/OR VOMITING ASSESSMENT AND PLAN: 68 year old female with history of DM 2, HTN, HLD, presented with R sided abdominal/flank discomfort, vomiting, fever (up to 102.7 on presentation). CT A/P - 0.5x0.3cm obstructive R ureteral stone causing hydronephrosis, additional b/l non-obstructing renal stones, bladder calculi, and incidental adrenal adenoma. 1. Sepsis secondary to UTI - secondary to obstruction due to R ureteral stone POD 2 s/p Cystoscopy with R retrograde pyelogram with R Ureteroscopic stone basketing and ureteral stenting. Sepsis resolved. On Ceftriaxone. Urine Cx - Ecoli - Medically stable for discharge on oral cephalosporin to complete 10 day Abx course. Urology follow up. 2. Uncontrolled HTN post-op requiring Nicardipine drip and ICU stay Weaned off Nicardipine drip - BP now controlled on Norvasc 10 and Enalapril 20. 3. HLD - continue Statin. 4. Mild Rhabdo with CPK elevated to 913, improving with IV hydration, down to 556. DVT Px - Heparin SQ
--- NOTE | 2018-12-09 13:08 | PN ---
Progress Note (short form) - Note Progress Note: Overall feels better. No CP or SOB. Intake & Output 12/06/18 12/07/18 12/08/18 12/09/18 23:59 23:59 23:59 23:59 Intake Total 3900 490 100 Output Total 0 Balance 3900 490 100 Weight 350 lb 350 lb Last Vital Signs Temp Pulse Resp BP Pulse Ox 98.2 F 85 22 H 151/92 97 12/09/18 09:00 12/09/18 09:00 12/09/18 09:00 12/09/18 09:00 12/08/18 21:00 Active Medications Acetaminophen (Tylenol -) 650 mg PO Q4H PRN PRN Reason: PAIN LEVEL 1-5 Amlodipine Besylate (Norvasc -) 10 mg PO DAILY [facility] Last Admin: 12/09/18 11:40 Dose: 10 mg Atorvastatin Calcium (Lipitor -) 40 mg PO HS [facility] Enalapril Maleate (Vasotec -) 20 mg PO DAILY [facility] Last Admin: 12/09/18 11:12 Dose: 20 mg Heparin Sodium (Porcine) (Heparin -) 5,000 unit SQ TID [facility] Ceftriaxone Sodium 1 gm/ (Dextrose) 50 mls @ 100 mls/hr IVPB DAILY [facility]; Protocol Last Admin: 12/09/18 11:13 Dose: 100 mls/hr Insulin Aspart (Novolog Vial Sliding Scale -) 1 vial SQ ACHS [facility]; Protocol Last Admin: 12/09/18 11:33 Dose: Not Given Morphine Sulfate (Morphine Sulfate) 2 mg IVPUSH Q4H PRN PRN Reason: PAIN LEVEL 6-10 Ondansetron HCl (Zofran Injection) 4 mg IVPUSH Q6H PRN PRN Reason: NAUSEA AND/OR VOMITING GENERAL: Awake and alert, NAD HEAD: Normal with no signs of trauma. EYES: sclera anicteric, conjunctiva clear. No lid lag. LUNGS:few scattered rhonchi HEART: Regular rate and rhythm, normal S1 and S2 without murmur, rub or gallop. ABDOMEN: Soft, nontender,obese, normoactive bowel sounds, UPPER EXTREMITIES: 2+ pulses, warm, well-perfused. No cyanosis. No clubbing. Cap refill <2 seconds. No peripheral edema. LOWER EXTREMITIES: 2+ pulses, warm, well-perfused. No calf tenderness. trace b/ l pedal edema; chronic venous stasis changes; NEUROLOGICAL: Non-focal PSYCHIATRIC: WNL SKIN: Warm, dry, normal turgor, no rashes or lesions noted. Laboratory Results - last 24 hr 12/08/18 12/08/18 12/08/18 13:16 17:05 21:22 WBC RBC Hgb Hct MCV MCH MCHC RDW Plt Count MPV Sodium Potassium Chloride Carbon Dioxide Anion Gap BUN Creatinine Creat Clearance w eGFR POC Glucometer 140 137 166 Random Glucose Calcium Phosphorus Magnesium Total Bilirubin AST ALT Alkaline Phosphatase Creatine Kinase Creatine Kinase Index CK-MB (CK-2) Total Protein Albumin 12/09/18 12/09/18 12/09/18 06:16 06:35 06:35 WBC 7.3 RBC 4.14 Hgb 11.1 Hct 34.9 MCV 84.3 MCH 26.8 MCHC 31.8 L RDW 13.5 Plt Count 202 MPV 8.6 Sodium 141 Potassium 3.9 Chloride 107 Carbon Dioxide 29 Anion Gap 4 L BUN 14 Creatinine 0.8 Creat Clearance w eGFR 71.76 POC Glucometer 114 Random Glucose 113 H Calcium 8.4 L Phosphorus 4.6 Magnesium 2.3 Total Bilirubin 0.5 AST 22 ALT 25 Alkaline Phosphatase 52 Creatine Kinase 556 H Creatine Kinase Index 0.3 CK-MB (CK-2) 1.8 Total Protein 6.7 Albumin 2.8 L 12/09/18 11:16 WBC RBC Hgb Hct MCV MCH MCHC RDW Plt Count MPV Sodium Potassium Chloride Carbon Dioxide Anion Gap BUN Creatinine Creat Clearance w eGFR POC Glucometer 120 Random Glucose Calcium Phosphorus Magnesium Total Bilirubin AST ALT Alkaline Phosphatase Creatine Kinase Creatine Kinase Index CK-MB (CK-2) Total Protein Albumin ASSESSMENT/PLAN: Hypertensive Urgency requiring Intravenous Cardene drip DM HTN Sepsis secondary to UTI with right hypdronephrosis and obstructing uretral stone POD #2 cystoscopy/right retrograde pyelogram/right ureteroscopic stone basketing and stent placement Incentive Spirometry O2 as needed VTE prophylaxis Follow Cultures ABX per ID Glycemic control Dr Lowery
--- NOTE | 2018-12-09 14:24 | DS ---
Physical Exam: SUBJECTIVE: Patient seen and examined at bedside. She is POD #2 s/p cystoscopy, right retrograde pyelogram, right ureteroscopic stone basketing and stent placement. Patient endorses that she is passing urine with minimal dysuria, and denies hematuria. She denies subjective fevers, chills, chest pain, palpitations , abdominal pain, nausea, vomiting. OBJECTIVE: Vital Signs Period Temp Pulse Resp BP Sys/Mei Pulse Ox Last 24 Hr 98.1 F-98.6 F 76-89 19-22 138-168/72-92 97 PHYSICAL EXAM GENERAL: The patient is awake, alert, and fully oriented, in no acute distress. HEAD: Normocephalic, atraumatic. EYES: PERRL, extraocular movements intact, sclera anicteric, conjunctiva clear. ENT: Oropharynx clear, without erythema or exudates. Moist mucous membranes. NECK: Trachea midline, full range of motion. Supple without lymphadenopathy. LUNGS: Breath sounds equal, clear to auscultation bilaterally, no wheezes, no crackles. No accessory muscle use. HEART: Regular rate and rhythm, S1, S2 without murmur, rub or gallop. ABDOMEN: Obese. Soft, nontender to light and deep palpation x4 quadrants, no rebound tenderness, no guarding. Normoactive bowel sounds. EXTREMITIES: 2+ radial, dorsalis pedis pulses bilaterally. Warm, well-perfused. Trace non-pitting lower extremity edema bilaterally. NEUROLOGICAL: Cranial nerves II through XII grossly intact. Normal speech. No gross focal deficits. PSYCH: Normal mood, normal affect upon my encounter. SKIN: Warm, dry. LABS Laboratory Results - last 24 hr 12/08/18 12/08/18 12/09/18 17:05 21:22 06:16 WBC RBC Hgb Hct MCV MCH MCHC RDW Plt Count MPV Sodium Potassium Chloride Carbon Dioxide Anion Gap BUN Creatinine Creat Clearance w eGFR POC Glucometer 137 166 114 Random Glucose Calcium Phosphorus Magnesium Total Bilirubin AST ALT Alkaline Phosphatase Creatine Kinase Creatine Kinase Index CK-MB (CK-2) Total Protein Albumin 12/09/18 12/09/18 12/09/18 06:35 06:35 11:16 WBC 7.3 RBC 4.14 Hgb 11.1 Hct 34.9 MCV 84.3 MCH 26.8 MCHC 31.8 L RDW 13.5 Plt Count 202 MPV 8.6 Sodium 141 Potassium 3.9 Chloride 107 Carbon Dioxide 29 Anion Gap 4 L BUN 14 Creatinine 0.8 Creat Clearance w eGFR 71.76 POC Glucometer 120 Random Glucose 113 H Calcium 8.4 L Phosphorus 4.6 Magnesium 2.3 Total Bilirubin 0.5 AST 22 ALT 25 Alkaline Phosphatase 52 Creatine Kinase 556 H Creatine Kinase Index 0.3 CK-MB (CK-2) 1.8 Total Protein 6.7 Albumin 2.8 L HOSPITAL COURSE: Date of Admission:12/07/18 Date of Discharge: 12/09/18 Patient is a 68 year old female with history of hypertension, non-insulin dependent diabetes mellitus, presented with dysuria. CT scan on admission showed 0.5 x 0.3 obstructing right sided renal calculus. Admitted for sepsis secondary to acute complicated urinary tract infection. Patient was evaluated by urology and had cystoscopy, right retrograde pyelogram, right ureteroscopic stone basketing and stent placement. Patient was treated with IV ceftriaxone. Urine cultures grew E. coli. Of note, patient's blood pressure was elevated to 210/ 109; patient was started on Cardizem drip in ICU. Patient was weaned off Cardizem, and reinstated on her home Enalapril (history of noncompliance endorsed by family), and started on Norvasc, with improved blood pressure control. Patient was evaluated by physical therapist; who recommended home physical therapy. Patient discharged home with homecare physical therapy. Patient discharged with Keflex for additional 7 days, Enalapril (refill), and Norvasc. Follow up with primary care physician, and urologist. Minutes to complete discharge: 35 Discharge Summary Reason For Visit: SEPIS DUE TO UTI/CALCULUS OF KIDNEY Current Active Problems Complicated UTI (urinary tract infection) (Acute) HTN (hypertension) (Acute) Nephrolithiasis (Acute) Condition: Stable - Instructions Diet, Activity, Other Instructions: You were admitted to the hospital with painful urination. You were evaluated by the urologist, and found to have a kidney stone that was surgically removed; with a stent placed. You were treated with antibiotics. You are being discharged home, with home physical therapy. Continue taking your home medications as directed. Begin taking Norvasc 10mg daily Continue taking antibiotic Keflex 500mg twice a day (every 12 hours) for 7 days. Follow up with your primary care physician within two -three days after discharge. Follow up with your urologist within one week of discharge. A referral to Dr. Stanislav Dave has been provided. Return to the nearest Emergency Department if you experience any worsening symptoms, subjective fevers, chills, shortness of breath, chest pain, palpitations, abdominal pain, nausea, vomiting, weakness, lightheadedness, dizziness, falls, loss of consciousness, trauma. Referrals: [facility] [place] [Provider Group] Dom Lugo MD [Staff Physician] - 12/11/18 Disposition: VNS/HOME HEALTH CARE - Home Medications Comprehensive Discharge Medication List: Ambulatory Orders Atorvastatin Ca [Lipitor] 40 mg PO HS 12/08/18 Enalapril Maleate [Vasotec] 20 mg PO DAILY 12/08/18 metFORMIN HCL [Metformin HCl] 500 mg PO BID 12/08/18 Amlodipine Besylate [Norvasc -] 10 mg PO DAILY 30 Days #30 tablet 12/09/18 Cephalexin [Keflex] 500 mg PO BID 7 Days #14 capsule 12/09/18 This patient is new to me today: No Emergency Visit: Yes ED Registration Date: 12/07/18 Care time: The patient presented to the Emergency Department on the above date and was hospitalized for further evaluation of their emergent condition. Critical Care patient: No - Discharge Referral Referred to [facility] No
[2018-12-09] MEDS: HEPARIN NA (PORCINE) 5,000 UNITS/ML 1ML VIAL SQ SCH ×2 (15:10→21:40)
--- NOTE | 2018-12-09 16:55 | PN ---
Progress Note (short form) - Note Progress Note: covering dr spears s/p hypertension urgency kidney stones Active Medications Acetaminophen (Tylenol -) 650 mg PO Q4H PRN PRN Reason: PAIN LEVEL 1-5 Amlodipine Besylate (Norvasc -) 10 mg PO DAILY [facility] Last Admin: 12/09/18 11:40 Dose: 10 mg Atorvastatin Calcium (Lipitor -) 40 mg PO HS [facility] Enalapril Maleate (Vasotec -) 20 mg PO DAILY [facility] Last Admin: 12/09/18 11:12 Dose: 20 mg Heparin Sodium (Porcine) (Heparin -) 5,000 unit SQ TID [facility] Last Admin: 12/09/18 15:10 Dose: Not Given Ceftriaxone Sodium 1 gm/ (Dextrose) 50 mls @ 100 mls/hr IVPB DAILY [facility]; Protocol Last Admin: 12/09/18 11:13 Dose: 100 mls/hr Insulin Aspart (Novolog Vial Sliding Scale -) 1 vial SQ ACHS [facility]; Protocol Last Admin: 12/09/18 11:33 Dose: Not Given Morphine Sulfate (Morphine Sulfate) 2 mg IVPUSH Q4H PRN PRN Reason: PAIN LEVEL 6-10 Ondansetron HCl (Zofran Injection) 4 mg IVPUSH Q6H PRN PRN Reason: NAUSEA AND/OR VOMITING Last Vital Signs Temp Pulse Resp BP Pulse Ox 98.5 F 78 22 H 138/68 97 12/09/18 14:57 12/09/18 14:57 12/09/18 14:57 12/09/18 14:57 12/09/18 09:00 Lungs clear Heart reg Abd soft nontender CBC, BMP 12/09/18 06:35 12/09/18 06:35 IMP- BP better Renal function is good
[2018-12-09] MEDS ORDERED: CHLORHEXIDINE GLUCONATE 4% CLEANSER FOR DECOLONIZATION TP SCH (22:00)
[2018-12-09] MEDS ORDERED: ATORVASTATIN CA 40 MG TABLET (FP) PO SCH (22:00)
[2018-12-09] MEDS ORDERED: HYDROCHLOROTHIAZIDE 12.5 MG CAPSULE (FP) PO ONE (23:32)
[2018-12-10] MEDS: HEPARIN NA (PORCINE) 5,000 UNITS/ML 1ML VIAL SQ SCH ×2 (06:37→14:50)
[2018-12-10] MEDS: INSULIN SLIDING SCALE (NOVOLOG) 1 VIAL SQ SCH ×2 (06:41→11:48)
[2018-12-10 09:56] VITALS: BP 145/78; PULSE 77; TEMP 98.1
[2018-12-10] MEDS ORDERED: DEXTROSE 5%-WATER - 50 ML IVPB ONE (10:27)
[2018-12-10] MEDS ORDERED: cefTRIAXone SODIUM 1 GM VIAL ONE (10:27)
[2018-12-10] MEDS: amLODIPine BESYLATE 5 MG TABLET (FP) PO SCH (10:31)
[2018-12-10] MEDS: CEFTRIAXONE 1 GM in DEXTROSE 5%-WATER - 50 ML IVPB SCH (10:31)
[2018-12-10] MEDS: ENALAPRIL MALEATE 10 MG TABLET (FP) PO SCH (10:31)
--- NOTE | 2018-12-11 19:05 | PATH ---
Surgical Pathology Report Patient Name: MASHA SCHULZ Med. Rec. #: [id number] /Age/Gender: 1950 (Age: 68) / F Account: [id number] Location: [address] [place] [address]/[facility] Taken: 12/07/2018 Received: 12/08/2018 Reported: 12/11/2018 Physicians: Dom Lugo Specimen(s) Received RIGHT URETERAL STONE Clinical History Right ureteral stone Final Diagnosis RIGHT URETERAL STONE, REMOVAL: CONSISTENT WITH URETERAL STONE, SENT FOR CHEMICAL ANALYSIS. Electronically Signed Allyson Robles M.D. Gross Description Received fresh labeled "right ureteral stone," is a 0.6 cm greatest dimension colón-alfaro, irregular calculus which is sent for chemical analysis. /12/08/2018 saudi/12/08/2018
== END 2018-12-10 14:00 | disposition home health service (06) | DRG 854 ==
LOC: JER 13:16 → JERBED 16:44 → JICU 12-08 00:15 → J5S 12-08 21:43
PROVIDERS: ADMIT Internal Medicine; ATTEND Internal Medicine
PROC: 0T768DZ Dilation of Right Ureter with Intraluminal Device, Via Natural or Artificial Opening Endoscopic (ICD-10-PCS; 2018-12-07)
PROC: BT1DZZZ Fluoroscopy of Right Kidney, Ureter and Bladder (ICD-10-PCS; 2018-12-07)
PROC: 0TC68ZZ Extirpation of Matter from Right Ureter, Via Natural or Artificial Opening Endoscopic (ICD-10-PCS; principal; 2018-12-07 21:26)
DX: A41.9 Sepsis, unspecified organism (principal); M62.82 Rhabdomyolysis; Z68.44 Body mass index [BMI] 60.0-69.9, adult; N13.2 Hydronephrosis with renal and ureteral calculous obstruction; I16.0 Hypertensive urgency; E11.9 Type 2 diabetes mellitus without complications; I10 Essential (primary) hypertension; Z79.84 Long term (current) use of oral hypoglycemic drugs; F17.210 Nicotine dependence, cigarettes, uncomplicated; E66.01 Morbid (severe) obesity due to excess calories; N21.0 Calculus in bladder; D35.00 Benign neoplasm of unspecified adrenal gland; Z91.14 Patient's other noncompliance with medication regimen
CPT/HCPCS: 36415; 71045-TC-FY; 74176-TC; 76000-TC-FY; 80048; 80053; 81003; 82360; 82550; 82553; 82803; 82962; 83605; 83690; 83735; 83880; 84100; 84484; 85025; 85027; 85610; 85730; 86850; 86900; 86901; 87040; 87086; 87186; 87804; 88300-TC; 93005; 93010; 93306-TC; 94640; 94760; 97116-GP; 97161-GP; 99285-25; J0131; J1644; J7030

== ENCOUNTER 2018-12-23 14:32 | Emergency (ER) | payer OTHER ==
[2018-12-23 14:52] VITALS: TEMP 98; BMI 49.4
--- NOTE | 2018-12-23 15:11 | PDOC ---
History of Present Illness - General Chief Complaint: Lightheaded Stated Complaint: WEAKNESS,DIZINESS Time Seen by Provider: 12/23/18 14:35 History Source: Patient Exam Limitations: No Limitations - History of Present Illness Initial Comments: 12/23/18 16:12 68 yo F with a hx of NIDDM, HTN, and nephrolithiasis presents to the emergency department with an event of chills 1 hour prior to the ED presentation. Per the patient, she was at rest when she had a sudden onset of chills. Denies LOC, head trauma, and hx of seizures. She was recently discharged from [facility] on 2018 for sepsis secondary to infected stone s/p ureteral stent right side. Patient endorses intermittent use of her medications, including the outpatient antibiotics she was prescribed as discharge. Per the granddaughter at bedside, she did not finish her abx course. Patient denies the following: fever, nausea, vomiting, chest pain, sOB, abdominal pain, dysuria, hematuria, diarrhea, and leg pain/swelling. Allergies: NKDA Social: Denies tobacco, alcohol, and substance abuse Shx: None Past History - Past Medical History Allergies/Adverse Reactions: Allergies Allergy/AdvReac Type Severity Reaction Status Date / Time No Known Allergies Allergy Verified 12/23/18 14:52 Home Medications: Ambulatory Orders Atorvastatin Ca [Lipitor] 40 mg PO HS 12/08/18 metFORMIN HCL [Metformin HCl] 500 mg PO BID 12/08/18 Amlodipine Besylate [Norvasc -] 10 mg PO DAILY 30 Days #30 tablet 12/09/18 Cephalexin [Keflex] 500 mg PO BID 7 Days #14 capsule 12/09/18 Enalapril Maleate [Vasotec] 20 mg PO DAILY 30 Days #30 tablet 12/09/18 Cephalexin Monohydrate [Keflex -] 500 mg PO BID #14 capsule 12/23/18 COPD: No Diabetes: Yes HTN: Yes Hypercholesterolemia: Yes Kidney Stones: Yes - Suicide/Smoking/Psychosocial Hx Smoking History: Never smoked Have you smoked in the past 12 months: No Hx Alcohol Use: No Drug/Substance Use Hx: No Substance Use Type: None Review of Systems - Review of Systems Able to Perform ROS?: Yes Is the patient limited Polish proficient: No Constitutional: Yes: Chills. No: Diaphoresis, Fever, Weakness HEENTM: No: Eye Pain, Recent change in vision, Ear Pain, Nose Pain, Throat Pain , Mouth Pain Respiratory: No: Cough, Shortness of Breath, Hemoptysis Cardiac (ROS): No: Chest Pain, Lightheadedness, Palpitations, Syncope, Chest Tightness ABD/GI: No: Constipated, Diarrhea, Nausea, Poor Appetite, Poor Fluid Intake, Rectal Bleeding, Vomiting, Indigestion, Abdominal cramping, Tarry Stools : No: Burning, Dysuria, Hematuria, Incontinence Musculoskeletal: No: Back Pain, Joint Pain, Neck Pain Integumentary: No: Bruising, Erythema, Rash Neurological: Yes: Tremors. No: Headache, Numbness, Tingling, Dizziness Psychiatric: No: Change in Appetite Endocrine: No: Unexplained Weight Gain Hematologic/Lymphatic: No: Anemia *Physical Exam - Vital Signs Last Vital Signs Temp Pulse Resp BP Pulse Ox 98 F 84 18 129/62 97 12/23/18 14:47 12/23/18 14:47 12/23/18 14:47 12/23/18 14:47 12/23/18 14:47 - Physical Exam General Appearance: Yes: Nourished, Appropriately Dressed. No: Apparent Distress, Intoxicated HEENT: positive: EOMI, PROMISE, Normal Voice, Symmetrical, Pharynx Normal, Hearing Grossly Normal. negative: Pale Conjunctivae, Scleral Icterus (R), Scleral Icterus (L), Muffled/Hoarse voice, Pharyngeal Erythema, Tonsillar Exudate, Tonsillar Erythema, Excessive drooling Neck: positive: Trachea midline, Supple. negative: Tender, Lymphadenopathy (R) , Lymphadenopathy (L), Tender lateral, Tender midline Respiratory/Chest: positive: Lungs Clear, Normal Breath Sounds. negative: Chest Tender, Respiratory Distress, Accessory Muscle Use, Crackles, Rales, Rhonchi, Stridor, Wheezing, Hyperresonant Cardiovascular: positive: Regular Rhythm, Regular Rate, S1, S2. negative: Systolic Murmur Gastrointestinal/Abdominal: positive: Normal Bowel Sounds, Flat, Soft. negative : Tender, Distended, Guarding, Rebound, Tenderness Lymphatic: negative: Adenopathy Musculoskeletal: positive: Normal Inspection. negative: CVA Tenderness, Vertebral Tenderness Extremity: positive: Normal Capillary Refill, Normal Inspection, Normal Range of Motion. negative: Tender, Swelling, Calf Tenderness Integumentary: positive: Normal Color, Dry, Warm. 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 negative: EOM Palsy, Facial Droop , Numbness, Sensory Deficit ED Treatment Course - LABORATORY CBC & Chemistry Diagram: 12/23/18 15:25 12/23/18 15:25 Medical Decision Making - Medical Decision Making 68 yo F with a hx of NIDDM, HTN, and nephrolithiasis presents to the emergency department with an event of chills 1 hour prior to the ED presentation. Initial vitals: Initial Vital Signs Temp Pulse Resp BP Pulse Ox 98 F 84 18 129/62 97 12/23/18 14:47 12/23/18 14:47 12/23/18 14:47 12/23/18 14:47 12/23/18 14:47 Work up: uti vs nephrolithiasis Laboratory Tests 12/23/18 12/23/18 12/23/18 15:15 15:18 15:25 WBC 4.6 RBC 4.84 Hgb 12.8 Hct 40.3 D MCV 83.3 MCH 26.4 MCHC 31.7 L RDW 13.3 Plt Count 270 D MPV 8.2 Absolute Neuts (auto) 2.3 Neutrophils % 49.2 D Lymphocytes % 37.6 D Monocytes % 9.2 Eosinophils % 3.0 D Basophils % 1.0 D Nucleated RBC % 0 Sodium Potassium Chloride Carbon Dioxide Anion Gap BUN Creatinine Est GFR (CKD-EPI)AfAm Est GFR (CKD-EPI)NonAf POC Glucometer 149 Random Glucose Calcium Total Bilirubin AST ALT Alkaline Phosphatase Creatine Kinase Troponin I Total Protein Albumin Urine Color Yellow Urine Appearance Clear Urine pH 6.5 Ur Specific [place] 1.005 L Urine Protein Negative Urine Glucose (UA) Negative Urine Ketones Negative Urine Blood 1+ H Urine Nitrite Negative Urine Bilirubin Negative Urine Urobilinogen 0.2 Ur Leukocyte Esterase 1+ H Urine WBC (Auto) 3.9 Urine RBC (Auto) 3.4 Urine Casts (Auto) 2.61 U Epithel Cells (Auto) 0.7 Urine Bacteria (Auto) 6.4 12/23/18 15:25 WBC RBC Hgb Hct MCV MCH MCHC RDW Plt Count MPV Absolute Neuts (auto) Neutrophils % Lymphocytes % Monocytes % Eosinophils % Basophils % Nucleated RBC % Sodium 136 Potassium 4.4 Chloride 103 Carbon Dioxide 27 Anion Gap 6 L BUN 12 Creatinine 0.8 Est GFR (CKD-EPI)AfAm 89.04 Est GFR (CKD-EPI)NonAf 76.83 POC Glucometer Random Glucose 142 H Calcium 8.8 Total Bilirubin 0.4 AST 10 L ALT 19 Alkaline Phosphatase 67 Creatine Kinase 92 Troponin I < 0.02 Total Protein 7.9 Albumin 3.6 Urine Color Urine Appearance Urine pH Ur Specific [place] Urine Protein Urine Glucose (UA) Urine Ketones Urine Blood Urine Nitrite Urine Bilirubin Urine Urobilinogen Ur Leukocyte Esterase Urine WBC (Auto) Urine RBC (Auto) Urine Casts (Auto) U Epithel Cells (Auto) Urine Bacteria (Auto) UA shows 1 + leuk esterase. patient will be re-prescribed her keflex. She was well appearing and able to ambulate on her own volition. granddaughter at bedside, as well as the patient, agreed to adhere to the medications as prescribed. Dispo: Discharge *DC/Admit/Observation/Transfer Diagnosis at time of Disposition: UTI (urinary tract infection) Qualifiers: Urinary tract infection type: site unspecified Hematuria presence: without hematuria Qualified Code(s): N39.0 - Urinary tract infection, site not specified - Discharge Dispostion Disposition: HOME Decision to Admit order: No - Prescriptions Prescriptions: Cephalexin Monohydrate [Keflex -] 500 mg PO BID #14 capsule - Referrals Referrals: [facility] [place] [Provider Group] - Patient Instructions Printed Discharge Instructions: DI for Urinary Tract Infection (UTI) Additional Instructions: You were seen in the emergency department for your shakes. You were found to have residual UTI. We are re-prescribing you the antibiotics that you did not complete. please take them twice a day for the next 7 days. please follow up with your primary medical doctor or with the one referred to you in 1 week after discharge for follow up care and management. please return to the emergency department if you have worsening symptoms or new concerning symptoms such as fevers, chills, vomiting, diarrhea, and confusion. thank you. - Post Discharge Activity
[2018-12-23 15:36] LABS: HEMATOCRIT 40.3 % (32.4-45.2); HEMOGLOBIN 12.8 GM/dL (10.7-15.3); LYMPH % 37.6 % (8-40); MCH 26.4 pg (25.7-33.7); MCHC 31.7 g/dl (32.0-36.0); MEAN CELL VOLUME 83.3 fl (80-96); MEAN PLT VOLUME 8.2 fl (7.5-11.1); MONO % 9.2 % (3.8-10.2); NEUT % 49.2 % (42.8-82.8); PLATELET COUNT 270 K/MM3 (134-434); RBC 4.84 M/mm3 (3.60-5.2); RDW 13.3 % (11.6-15.6); WHITE BLOOD COUNT 4.6 K/mm3 (4.0-10.0)
[2018-12-23 15:43] LABS: PH,URINE 6.5 (5.0-8.0); URINE APPEARANCE CLEAR; URINE BILIRUBIN NEGATIVE (NEGATIVE); URINE COLOR YELLOW; URINE GLUCOSE (UA) NEGATIVE (NEGATIVE); URINE KETONE NEGATIVE (NEGATIVE); URINE LEUK ESTERASE 1+ (NEGATIVE); URINE NITRITE NEGATIVE (NEGATIVE); URINE PROTEIN NEGATIVE (NEGATIVE); URINE UROBILINOGEN 0.2 mg/dL (0.2-1.0)
[2018-12-23 15:58] LABS: ALBUMIN 3.6 g/dl (3.4-5.0); ALK PHOS 67 U/L (45-117); ANION GAP 6 MMOL/L (8-16); BILIRUBIN,TOTAL 0.4 mg/dL (0.2-1); BLOOD UREA NITROGEN 12 mg/dL (7-18); CALCIUM 8.8 mg/dL (8.5-10.1); CHLORIDE 103 mmol/L (98-107); CO2 27 mmol/L (21-32); CREATININE 0.8 mg/dL (0.55-1.3); GLUCOSE,RANDOM 142 mg/dL (74-106); POTASSIUM 4.4 mmol/L (3.5-5.1); SGOT/AST 10 U/L (15-37); SGPT/ALT 19 U/L (13-61); SODIUM 136 mmol/L (136-145); TOT PROT 7.9 g/dl (6.4-8.2)
--- NOTE | 2018-12-23 16:40 | PDOC ---
Documentation entered by Tamiko Saravia SCRIBE, acting as scribe for Geovany Fournier MD. Geovany Fournier MD: This documentation has been prepared by the Manjit meehan Collisia, SCRIBE, under my direction and personally reviewed by me in its entirety. I confirm that the documentation accurately reflects all work, treatment, procedures, and medical decision making performed by me. Attending Attestation - Resident Resident Name: Zafar Pinedo - ED Attending Attestation I have performed the following: I have examined & evaluated the patient, The case was reviewed & discussed with the resident, I agree w/resident's findings & plan, Exceptions are as noted - HPI HPI: 12/23/18 15:21 The patient is a 68 year old female with a significant past medical history of hypertension and diabetes who resents to the emergency department with an episode of chills about an hour prior to arrival. She denies any loc. No h/o seizures in the past. The patient state that she has been experiencing some episodes of urinary frequency recently. It is noted that the patient was recently discharged from the hospital on 12/09 for sepsis secondary to infected kidney stone. The patients granddaughter at bedside states that the patient has been only intermittently compliant with antibiotics that she was discharged with. The patient denies any fever, nausea, vomiting, diarrhea, constipation, chest pain or shortness of breath. She denies any other complaints. - Physicial Exam PE: 12/23/18 16:38 Agree with resident exam - Medical Decision Making 12/23/18 16:38 68 F with episode of rigors/chills one hour ago, now resolved. Vitals now stable , pt afebrile. No findings on exam concerning for infection. Will evaluate UA as pt had recent UTI. - Labs, UA 12/23/18 17:01 UA with + LE Labs otherwise unremarkable Pt reassessed - continues to have no complaints Will continue keflex prescribed for UTI Pt is well appearing, with normal vitals. Clinically stable for DC at this time. I discussed the physical exam findings, ancillary test results and final diagnoses with the patient. I answered all of the patient's questions. The patient was satisfied with the care received and felt comfortable with the discharge plan and treatment plan. The patient agrees to follow up with the primary care physician within 24-72 hours.
[2018-12-23 16:42] LABS: EPI CELLS 0.7 /HPF (0-5/HPF); URINE BACTERIA 6.4 /hpf (NEGATIVE); URINE CASTS 2.61 /lpf (0-8); URINE RBC 3.4 /hpf (0-4); URINE WBC 3.9 /hpf (0-5)
[2018-12-23 17:14] VITALS: BP 130/58; PULSE 79
--- NOTE | 2018-12-24 12:24 | EKG ---
Test Reason : Blood Pressure : / mmHG Vent. Rate : 084 BPM Atrial Rate : 084 BPM P-R Int : 142 ms QRS Dur : 092 ms QT Int : 380 ms P-R-T Axes : 037 -27 065 degrees QTc Int : 449 ms POOR DATA QUALITY, INTERPRETATION MAY BE ADVERSELY AFFECTED NORMAL SINUS RHYTHM MODERATE VOLTAGE CRITERIA FOR LVH, MAY BE NORMAL VARIANT BORDERLINE ECG WHEN COMPARED WITH ECG OF 07-DEC-2018 13:54, NONSPECIFIC T WAVE ABNORMALITY, IMPROVED IN LATERAL LEADS Confirmed by TYRESE LORD MD ([id number]) on 12/24/2018 12:24:25 PM Referred By: Confirmed By:TYRESE LORD MD
== END 2018-12-23 17:14 | disposition home or self-care (01) ==
LOC: JER 14:32
DX: N39.0 Urinary tract infection, site not specified (principal); I10 Essential (primary) hypertension; E11.9 Type 2 diabetes mellitus without complications; E78.00 Pure hypercholesterolemia, unspecified; Z79.84 Long term (current) use of oral hypoglycemic drugs
CPT/HCPCS: 36415; 71045-TC-FY; 80053; 81003; 82550; 82962; 84484; 85025; 87086; 93005; 93010; 99283-25

== ENCOUNTER 2019-01-01 10:17 | Day surgery (SDC) | payer OTHER ==
[2019-01-01 06:50] VITALS: BMI 49.4
[2019-01-01] MEDS ORDERED: MIDAZOLAM HCL 2 MG/2 ML SINGLE DOSE VIAL ONE ×2 (12:28)
[2019-01-01] MEDS ORDERED: KETAMINE HCL 200 MG/20 ML VIAL ONE (12:28)
--- NOTE | 2019-01-01 13:08 | OP ---
Operative Note - Note: Operative Date: 01/01/19 Pre-Operative Diagnosis: Righr proximal ureter stone Operation: R ESW Findings: 10 mm Right upper pole renal stone Post-Operative Diagnosis: Same as Pre-op Surgeon: Dom Lugo Anesthesia: Fractional Estimated Blood Loss (mls): 0 Operative Report Dictated: Yes
[2019-01-01 14:52] VITALS: BP 143/81; PULSE 85; TEMP 98.8
--- NOTE | 2019-01-02 10:03 | OP ---
DATE OF OPERATION: 01/01/2019 PREOPERATIVE DIAGNOSIS: Right renal stone. POSTOPERATIVE DIAGNOSIS: Right proximal ureteral stone. ATTENDING: Danni Mccarthy MD ANESTHESIA: Fractional. OPERATION WENT FOLLOWS: The patient was brought in the operating room, placed in supine position on the operating room table. Ultrasonography and fluoroscopy were performed. A proximal right ureteral stone measuring 10 mm was noted. A stent was in place. The patient was given anesthesia and preoperative antibiotics. After which, a shock wave lithotripsy was started. The patient had 3000 impulses at 20 joules of power given to the stone. Excellent fragmentation was noted. No complications were noted. The patient tolerated the procedure very well. DANNI MCCARTHY M.D. [id number]
== END 2019-01-01 14:50 | disposition home or self-care (01) ==
LOC: JASU-SURG 10:17
PROVIDERS: ATTEND Urology
PROC: 0TF6XZZ Fragmentation in Right Ureter, External Approach (ICD-10-PCS; principal; 2019-01-01 11:45)
DX: N20.1 Calculus of ureter (principal)
CPT/HCPCS: 82962

== ENCOUNTER 2019-02-12 13:41 | Day surgery (SDC) | payer OTHER ==
[2019-02-09 17:14] VITALS: BMI 49.4
[2019-02-12] MEDS ORDERED: PROPOFOL 20 ML ONE (15:46)
[2019-02-12] MEDS ORDERED: MIDAZOLAM HCL 2 MG/2 ML SINGLE DOSE VIAL ONE ×2 (15:46)
--- NOTE | 2019-02-12 16:31 | OP ---
Operative Note - Note: Operative Date: 02/12/19 Pre-Operative Diagnosis: Left renal stone Operation: Left ESWL Findings: 10 mm mid pole renal stone Post-Operative Diagnosis: Same as Pre-op Surgeon: Dom Lugo Estimated Blood Loss (mls): 0 Operative Report Dictated: Yes
[2019-02-12 19:05] VITALS: BP 155/80; PULSE 50; TEMP 98
--- NOTE | 2019-02-12 20:44 | OP ---
DATE OF OPERATION: 02/12/2019 PREOPERATIVE DIAGNOSIS: Left renal stone. POSTOPERATIVE DIAGNOSIS: Left renal stone. PROCEDURE: Left extracorporeal shock wave lithotripsy. ATTENDING: Danni Mccarthy MD ANESTHESIA: Fractional. DESCRIPTION OF OPERATION: The patient was brought in the operating room and placed in supine position on the operating room table. Ultrasonography and fluoroscopy were performed. A left mid-pole stone measuring 10 mm was identified. Anesthesia and preoperative antibiotics were then administered. Shock wave lithotripsy was then performed. No complications were noted. The stone fragmented well under real-time ultrasonography and fluoroscopy. The disposition of the patient was to the recovery room. DANNI MCCARTHY M.D. [id number]
== END 2019-02-12 18:30 | disposition home or self-care (01) ==
LOC: JASU-SURG 13:41
PROVIDERS: ATTEND Urology
PROC: 0TF4XZZ Fragmentation in Left Kidney Pelvis, External Approach (ICD-10-PCS; principal; 2019-02-12 14:45)
DX: N20.0 Calculus of kidney (principal)
CPT/HCPCS: 82962

== ENCOUNTER 2020-02-29 14:28 | Emergency (ER) | payer OTHER ==
[2020-02-29] MEDS ORDERED: ONDANSETRON 4 MG/2 ML VIAL IVPUSH ONE (14:31)
[2020-02-29 14:56] LABS: BASO % 0.3 % (0-2.0); EOS % 0.1 % (0-4.5); HEMATOCRIT 43.4 % (32.4-45.2); HEMOGLOBIN 13.8 GM/dL (10.7-15.3); LYMPH % 10.8 % (8-40); MCH 26.6 pg (25.7-33.7); MCHC 31.7 g/dl (32.0-36.0); MEAN PLT VOLUME 8.7 fl (7.5-11.1); NEUT % 85.8 % (42.8-82.8); PLATELET COUNT 191 K/MM3 (134-434); RBC 5.17 M/mm3 (3.60-5.2); RDW 13.1 % (11.6-15.6)
[2020-02-29 14:58] VITALS: BMI 36.9
[2020-02-29] MEDS ORDERED: DILTIAZEM INJECTION 125 MG in SODIUM CHLORIDE 100 ML IVPB SCH (15:15)
[2020-02-29] MEDS ORDERED: levETIRAcetam 500 MG/5 ML INJECTION VIAL IVPB ONE ×2 (15:15→15:19)
[2020-02-29 15:16] LABS: INR 1.16 (0.83-1.09); PROTHROMBIN TIME (PATIENT) 13.7 SEC (9.7-13.0)
[2020-02-29 15:19] LABS: ACTIVATED PTT 25.9 SECONDS (25.2-36.5)
[2020-02-29] MEDS ORDERED: dilTIAZem HCL 125 MG/25 ML - 25 ML VIAL ONE (15:19)
[2020-02-29 15:27] LABS: CHOLESTEROL 117 mg/dL (50-200); HDL CHOLESTEROL 56 mg/dL (40-60); LDL CHOLESTEROL (ONLY SJRH) 54 mg/dL (5-100); TRIGLYCERIDES 54 mg/dL (0-150)
[2020-02-29] MEDS ORDERED: RAPID SEQUENCE INTUBATION KIT NR ONE (15:27)
[2020-02-29 15:33] LABS: ALBUMIN 3.9 g/dl (3.4-5.0); BILIRUBIN,TOTAL 0.7 mg/dL (0.2-1); BLOOD UREA NITROGEN 10.2 mg/dL (7-18); CALCIUM 9.1 mg/dL (8.5-10.1); CREATININE 0.8 mg/dL (0.55-1.3); TOT PROT 8.6 g/dl (6.4-8.2)
[2020-02-29] MEDS ORDERED: PROPOFOL 1,000,000 MCG/100 ML VIAL ONE (15:44)
[2020-02-29] MEDS ORDERED: PROPOFOL 200 MG/20 ML VIAL IVPUSH ONE ×2 (15:52→15:53)
[2020-02-29] MEDS ORDERED: SUCCINYLCHOLINE CHLORIDE 200 MG/10 ML VIAL IVPUSH ONE (15:54)
[2020-02-29] MEDS ORDERED: ETOMIDATE 40 MG/20 ML VIAL IVPUSH ONE (15:54)
[2020-02-29] MEDS ORDERED: PROPOFOL 1,000,000 MCG/100 ML VIAL IVPB SCH (16:00)
[2020-02-29] MEDS ORDERED: ROCURONIUM BROMIDE 50 MG/5 ML VIAL IV ONE (16:12)
--- NOTE | 2020-02-29 16:13 | CONSULT ---
Consult Consult Specialty:: PULM/CCM Referred by:: ER Reason for Consultation:: Acute Intracranial bleed - History of Present Illness Chief Complaint: AMS History of Present Illness: 68 F, well known to me from previous admissions. Obesity, poorly controlled hypertension with previous admissions for HTN emergency requiring IV anti-HTN agents, and diabetes mellitus. Previous admission for sepsis due to nephrolithiasis. Admitted via the ER due to AMS. Last none normal was last night. Intubated in the ER. Poorly responsive. Intermittent posturing. CT imaging ICH with extension into the ventricle. Patient being transferred to tertiary care due to the inability for ICP monitoring at this time. Currently on AC mode of vent, 16/450/40%/PEEP5. ABG is pending. - History Source History Provided By: Medical Record Limitations to Obtaining History: Clinical Condition - Past Medical History Cardio/Vascular: Yes: HTN Renal/: Yes: Renal Calculi Endocrine: Yes: Diabetes Mellitus - Alcohol/Substance Use Hx Alcohol Use: No - Smoking History Smoking history: Unknown if ever smoked Have you smoked in the past 12 months: No Home Medications - Allergies Allergies/Adverse Reactions: Allergies Allergy/AdvReac Type Severity Reaction Status Date / Time aspirin AdvReac Verified 10/19/19 12:46 - Home Medications Home Medications: Ambulatory Orders Amlodipine Besylate [Norvasc -] 10 mg PO DAILY 30 Days #30 tablet 12/09/18 Metformin HCl [Glucophage] 500 mg PO DAILY 02/12/19 Review of Systems Unable to obtain ROS, reason: Not able to obtain Physical Exam Vital Signs: Vital Signs Temperature 98 F 02/29/20 14:30 Pulse Rate 78 02/29/20 14:30 Respiratory Rate 19 02/29/20 14:30 Blood Pressure 185/93 H 02/29/20 14:30 O2 Sat by Pulse Oximetry (%) 97 02/29/20 14:30 Constitutional: Yes: Obese, Other (Intubated) Eyes: Yes: Conjunctiva Clear HENT: Yes: Atraumatic, Normocephalic Neck: Yes: Supple, Trachea Midline Cardiovascular: Yes: Regular Rate and Rhythm Respiratory: Yes: Mechanically Ventilated, Rhonchi Gastrointestinal: Yes: Normal Bowel Sounds, Soft, Abdomen, Obese Extremities: Yes: WNL Edema: Yes Peripheral Pulses WNL: Yes Integumentary: Yes: Venous Stasis Changes Neurological: Yes: Unresponsive Labs: CBC, BMP 02/29/20 14:42 02/29/20 14:42 Imaging - Results Chest X-ray: Report Reviewed, Image Reviewed Cat Scan: Report Reviewed, Image Reviewed Problem List - Problems (1) Hypertensive crisis Code(s): I16.9 - HYPERTENSIVE CRISIS, UNSPECIFIED (2) Acute respiratory failure Code(s): J96.00 - ACUTE RESPIRATORY FAILURE, UNSP W HYPOXIA OR HYPERCAPNIA (3) Intracranial hemorrhage Code(s): I62.9 - NONTRAUMATIC INTRACRANIAL HEMORRHAGE, UNSPECIFIED (4) Aspiration pneumonia Code(s): J69.0 - PNEUMONITIS DUE TO INHALATION OF FOOD AND VOMIT (5) HTN (hypertension) Code(s): I10 - ESSENTIAL (PRIMARY) HYPERTENSION Assessment/Plan AC Mode of vent ABG STAT Cardene drip for SBP : 140 mmHg Carrera-culture Noted ABX coverage for possible Aspiration PNA Patient to be transferred to [facility] for further Neurosurgical intervention and monitoring Dr Lowery Critical care time spent in reviewing chart, evaluating patient and formulating plan - 36 minutes.
[2020-02-29] MEDS ORDERED: TAZOB IVPB ONE (16:18)
[2020-02-29] MEDS ORDERED: DEXTROSE 5% IVPB ONE (16:18)
[2020-02-29] MEDS ORDERED: PIPERACILLIN IVPB ONE (16:18)
[2020-02-29] MEDS ORDERED: WATER IVPB ONE (16:18)
--- NOTE | 2020-02-29 16:19 | PDOC ---
History of Present Illness - General Chief Complaint: Nausea/Vomiting Stated Complaint: Nausea/Vomiting Time Seen by Provider: 02/29/20 15:02 - History of Present Illness Initial Comments: 69 yo female with PMH of HTN brought in by EMS after being found down 1 hour ago by her son. She is unable to speak due to ams and language barrier so history is obtained by her son. Her son found her on the ground with vomit across the floor . At the time, she was alert and oriented to place only. She was then brought in for evaluation in which she was able to follow commands but had a decreased level of consciousness. NIH Stroke Scale - Last Known Well Date/Time & Onset Date Last Known Well: 02/29/20 Time Last Known Well: 10:00 - Initial Evaluation Level of consciousness: Not alert, requires repeat stimulation to attend Ask patient the month and their age: Both incorrect Ask patient to open & close eyes; make fist and let go: Obeys one correctly Best gaze (horizontal eye movement): Normal Past History - Medical History Allergies/Adverse Reactions: Allergies Allergy/AdvReac Type Severity Reaction Status Date / Time aspirin AdvReac Verified 10/19/19 12:46 Home Medications: Ambulatory Orders Amlodipine Besylate [Norvasc -] 10 mg PO DAILY 30 Days #30 tablet 12/09/18 Metformin HCl [Glucophage] 500 mg PO DAILY 02/12/19 Anemia: No Asthma: No Cancer: No Cardiac Disorders: Yes (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: Yes (left side weakness) COPD: No CHF: No Dementia: No Diabetes: Yes GI Disorders: No Disorders: Yes (KIDNEY STONE) HTN: Yes Hypercholesterolemia: Yes Kidney Stones: Yes Liver Disease: No Seizures: No Thyroid Disease: No - Surgical History Abdominal Surgery: No Appendectomy: No Cardiac Surgery: No Cholecystectomy: No Lung Surgery: No Neurologic Surgery: No Orthopedic Surgery: No - Psycho-Social/Smoking History Smoking History: Unknown if ever smoked Have you smoked in the past 12 months: No Review of Systems - Review of Systems Able to Perform ROS?: No (decreased LOC) Is the patient limited Cymro proficient: No *Physical Exam - Vital Signs Last Vital Signs Temp Pulse Resp BP Pulse Ox 98 F 78 19 185/93 H 97 02/29/20 14:30 02/29/20 14:30 02/29/20 14:30 02/29/20 14:30 02/29/20 14:30 - Physical Exam General Appearance: Yes: Nourished, Appropriately Dressed. No: Apparent Distress HEENT: positive: PROMISE, Normal ENT Inspection Respiratory/Chest: positive: Lungs Clear, Normal Breath Sounds, Respiratory Distress Cardiovascular: positive: Regular Rhythm, Regular Rate, S1, S2, Edema. negative: Murmur Gastrointestinal/Abdominal: positive: Flat, Soft. negative: Tender Extremity: positive: Normal Capillary Refill, Normal Inspection Integumentary: positive: Normal Color, Cold, Clammy, Diaphoresis Neurologic: positive: Respond to painful stimul, Confused, Disoriented. negative: Fully Oriented, Alert, Facial Droop Procedures - Intubation Intubation Method: orotracheal Blade used: Glidescope Tube Size (Fr): 7.5 Medications: Etomidate, Rocuronium, Succinylcholine, Versed Tube position @ lip (cm): 122 Tube position confirmed by: Direct visualization, CO2 detector, Breath sounds Breath Sounds after Intubation: equal Intubation Complications: no complications, vomited, oralbleed Post Intubation Xray: Yes (confirmed tube placement) ED Treatment Course - LABORATORY CBC & Chemistry Diagram: 02/29/20 14:42 02/29/20 14:42 - ADDITIONAL ORDERS Additional order review: Laboratory Results 02/29/20 02/29/20 02/29/20 14:42 14:42 14:42 PT with INR 13.70 H INR 1.16 H PTT (Actin FS) 25.9 Sodium 136 Potassium 4.0 Chloride 98 Carbon Dioxide 24 Anion Gap 14 BUN 10.2 Creatinine 0.8 Est GFR (CKD-EPI)AfAm 88.42 Est GFR (CKD-EPI)NonAf 76.29 Random Glucose 166 H Calcium 9.1 Total Bilirubin 0.7 AST 25 ALT 35 Alkaline Phosphatase 85 Creatine Kinase 231 H Creatine Kinase Index 0.7 CK-MB (CK-2) 1.8 Troponin I 0.02 Total Protein 8.6 H Albumin 3.9 Triglycerides 54 Cholesterol 117 Total LDL Cholesterol 54 HDL Cholesterol 56 02/29/20 14:42 RBC 5.17 MCV 84.0 MCHC 31.7 L RDW 13.1 MPV 8.7 Neutrophils % 85.8 H D Lymphocytes % 10.8 D Monocytes % 3.0 L Eosinophils % 0.1 D Basophils % 0.3 - Medications Given in the ED: ED Medications Discontinued Medications Generic Name Dose Route Start Last Admin Trade Name Bossman PRN Reason Stop Dose Admin Etomidate 20 mg 02/29/20 15:54 02/29/20 15:58 Amidate - IVPUSH 02/29/20 15:55 20 mg NOW ONE Administration Levetiracetam 1,500 mg 02/29/20 15:15 02/29/20 15:50 Keppra Injection - IVPB 02/29/20 15:16 1,500 mg ONCE ONE Administration Ondansetron HCl 4 mg 02/29/20 14:31 02/29/20 15:50 Zofran Injection IVPUSH 02/29/20 14:32 4 mg ONCE ONE Administration Propofol 10 mcg 02/29/20 15:52 02/29/20 15:58 Diprivan - IVPUSH 02/29/20 15:53 10 mcg ONCE ONE Administration Propofol 5 mcg 02/29/20 15:53 02/29/20 15:58 Diprivan - IVPUSH 02/29/20 15:54 5 mcg ONCE ONE Administration Succinylcholine Chloride 100 mg 02/29/20 15:54 02/29/20 15:58 Quelicin - IVPUSH 02/29/20 15:55 100 mg ONCE ONE Administration Medical Decision Making - Medical Decision Making 69 yo female with PMH of HTN and DM presents with an AMS. She is found to have a left frontal cerebral bleed with leakage into the ventricles and a midline shift. She was intubated with RSI with Etomidate, Propofol, Succinylcholine, Rocuronium. She was given Diltiazem and Levetiracetam for seizure prophylaxis. Her BP was >200s/100s and was put on a Nicardipine drip. She was put on Zosyn for her risk of aspiration from vomiting during intubation. Intubation was confirmed with direct visualization, xray, color capnography, and breath sounds. [facility] by neurosurgery. Discharge - Discharge Information Problems reviewed: Yes Clinical Impression/Diagnosis: CVA (cerebral vascular accident) Condition: Stable Disposition: TRANSFER ACUTE CARE/OTHER HOSP - Admission No - Follow up/Referral - Patient Discharge Instructions - Post Discharge Activity
--- NOTE | 2020-02-29 16:21 | PDOC ---
Documentation entered by Pura Blake SCRIBE, acting as scribe for Dilip Robles MD. Dilip Robles MD: This documentation has been prepared by the Hayden meehan Nirvannie, SCRIBE, under my direction and personally reviewed by me in its entirety. I confirm that the documentation accurately reflects all work, treatment, procedures, and medical decision making performed by me. Attending Attestation - Resident Resident Name: Daniel Lilly - ED Attending Attestation I have performed the following: I have examined & evaluated the patient, The case was reviewed & discussed with the resident, I agree w/resident's findings & plan, Exceptions are as noted - HPI HPI: 02/29/20 15:32 The patient is a 69 year old female with a significant past medical history of NIDDM, HTN, and nephrolithiasis who presents to the ED with her son after being found down on the ground, somnolent, with vomit on her. Per son, patients last known well was last night at 12pm and she was in her usual state of health. Today at approximately noon, he found her down with vomitus on her. It is unknown how long the patient was down or in this state. - Physicial Exam PE: 02/29/20 16:16 Vitals: Triage Vital signs reviewed General Appearance: Lethargic, obtunded Head: Atraumatic, Eyes: Pupils equal reactive round, extraocular movement intact Cardiac: Tachycardic Lungs: Clear to auscultation bilateral, good air movement bilaterally, Abdomen: Soft, non distended, normal bowel sounds, non tender to palpation Extremities: Full range of motion to all extremities, no cyanosis, clubbing, or edema Skin: Warm and dry, no rashes or lesions, no rash, no petechiae Neuro: Lethargic minimally following commands but moving all extremities responding to pain in all 4 extremities - Critical Care Time Total Critical Care Time: 65 Critical Care Statement: The care of this patient involved high complexity decision making to prevent further life threatening deterioration of the patient's condition and/or to evaluate & treat vital organ system(s) failure or risk of failure. - Medical Decision Making 02/29/20 16:18 69 years old gen-vtswtya-vxloyrzln diabetes poorly controlled hypertension presents to the ED with altered mental status found minimally responsive at noon today last seen normal was midnight last night several episodes of vomiting at home brought in by son Stat head CT ordered demonstrates left intracerebral hemorrhage with ventricular involvement and shift Nerosurgery and ICU consulted Decision made to intubate patient to protect airway Intubation performed via glide scope with no complication see resident note Patient stated on nicardipine drip, Keppra load, propofol and rocuronium for sedation and paralysis to prevent ICP elevation Unable to perform ventriculostomy drain management here. Case discussed with [facility] per family preference All family questions answered, greater than 30 minutes spent with family Patient accepted for stat transfer to [facility] for definitive management Heart Score/ECG Review - ECG Impressions Comment:: 02/29/20 16:19 EKG performed at 1444 demonstrates normal sinus rhythm [address] elevations no T wave inversions Interpreted by me NIH Stroke Scale - Last Known Well Date/Time & Onset Date Last Known Well: 02/28/20 - Initial Evaluation Level of consciousness: Not alert, but arousable with minimal stimulation Ask patient the month and their age: Answers one correctly Ask patient to open & close eyes; make fist and let go: Obeys both correctly Best gaze (horizontal eye movement): Normal Visual field testing: No visual field loss Facial paresis (Show teeth/raise eyebrows/close eyes tight): Normal symmetrical movement Motor Function: Left Arm: Some effort against gravity Motor Function: Right Arm: Some effort against gravity Motor Function: Left Leg: Some effort against gravity Motor Function: Right Leg: Some effort against gravity Limb Ataxia: No ataxia Sensory(Use pinprick test arms,legs,trunk,face/side to side): Normal Best language (Describe picture, name items, read sentences): No Aphasia Dysarthria (read several words): Mild to moderate slurring of words Extinction and Inattention: No abnormality - Total Score NIH Stroke Scale Score: 11 Discharge - Discharge Information Problems reviewed: Yes Clinical Impression/Diagnosis: Intraparenchymal hematoma of brain Qualifiers: Encounter type: initial encounter Laterality: left Loss of consciousness presence/duration: with LOC of unspecified duration Qualified Code(s): S06.359A - Traumatic hemorrhage of left cerebrum with loss of consciousness of unspecified duration, initial encounter Condition: Stable Disposition: TRANSFER ACUTE CARE/OTHER HOSP - Follow up/Referral - Patient Discharge Instructions - Post Discharge Activity
[2020-02-29 16:41] LABS: ARTERIAL BLD GAS O2 SATURATION 98.2 mmHg (95-98); ARTERIAL BLOOD GAS BASE EXCESS -4.4 mmol/L (-2-2); ARTERIAL BLOOD GAS PO2 126.4 mmHg (80-100)
[2020-02-29] MEDS ORDERED: niCARdipine HCL 25 MG/10 ML AMPUL IVPB ONE (16:41)
[2020-02-29] MEDS ORDERED: NICARDIPINE 25 MG in DEXTROSE 5%-WATER - 240 ML IVPB SCH (16:45)
[2020-02-29 16:58] VITALS: BP 209/163; PULSE 107; TEMP 98.7
--- NOTE | 2020-02-29 17:01 | PN ---
Progress Note (short form) - Note Progress Note: NEUROSURGERY CONSULT DICTATED Pt seen in ED chart reviewed Head CT reviewed Pt examined Just intubated and exam blocked Labs reviewed Head CT- L head of caudate ICH with rupture into lateral ventricle with IVH (lat, 3rd, 4th) and ventricular dilatation; no transependymal flow Hypertensive hemorrhage with ICH/ventriculomegaly Careful BP monitoring and control Ventricular drain and ICP monitoring needed Checked with OR staff, no catheter or drainage system available FIRE CHIEF'S AIDEstaff developer not comfortable with drainage system monitoring Pt's best interest and optimal care care will be served/provided by a transfer to tertiary institution D/w ICU attending and ED attending
--- NOTE | 2020-03-01 15:04 | EKG ---
Test Reason : Blood Pressure : / mmHG Vent. Rate : 076 BPM Atrial Rate : 076 BPM P-R Int : 194 ms QRS Dur : 108 ms QT Int : 396 ms P-R-T Axes : 043 -25 068 degrees QTc Int : 445 ms NORMAL SINUS RHYTHM VOLTAGE CRITERIA FOR LEFT VENTRICULAR HYPERTROPHY ABNORMAL ECG WHEN COMPARED WITH ECG OF 23-DEC-2018 14:34, NONSPECIFIC T WAVE ABNORMALITY, WORSE IN LATERAL LEADS Confirmed by KATIA BIRMINGHAM MD ([id number]) on 03/01/2020 3:03:48 PM Referred By: Confirmed By:KATIA BIRMINGHAM MD
--- NOTE | 2020-03-02 14:09 | CONS ---
DATE OF CONSULTATION: 02/29/2020 CHIEF COMPLAINT: Intracranial hemorrhage with ventricular dilatation. HISTORY OF PRESENT ILLNESS: Patient is a 69-year-old right-handed female with history of hypertension and obesity, who was found unconscious down on the floor earlier today. She had no prior episodes. According to the chart record, the patient was at home, and was found by her son on the ground somnolent and had vomited. She was last well last night at about midnight. She was in her usual state of health until then at least. She was found at about noontime and was taken by ambulance to the emergency room. She was somnolent in the emergency room, and was intubated for airway control. CT scan was done demonstrating a parenchymal hemorrhage with ventricular dilatation and intraventricular hemorrhage. PAST MEDICAL HISTORY: Significant for obesity, hypertension and type 2 diabetes. MEDICATIONS: Include Norvasc and metformin. ALLERGIES: To ASPIRIN. SOCIAL HISTORY: She lives at home. She does not reportedly smoke and does not drink alcohol. 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 PHYSICAL EXAMINATION: Vital Signs: Temperature is 98. Blood pressure is 185/93 with pulse rate of 78. She was started on Cardene. O2 saturation was 97% initially after which she was intubated. HEENT: Shows her to be normocephalic, atraumatic. Neck: Supple with no carotid bruit. Coronary: Demonstrated regular rhythm. Lungs: Showed decreased breath sounds at the bases. Abdomen: Showed her to be obese with hypoactive bowel sounds. Extremities: Shows no obvious signs of DVT. Neurologic: The patient is intubated and sedated. She was also given paralytic for her intubation. Cranial nerve examination shows pupils to be 4 mm and sluggish bilaterally. The rest of the cranial nerve examination is blocked. Motor examination is also blocked. Sensory examination is difficult to assess. Toes are equivocal bilaterally. LABORATORY: Shows a white blood cell count of 7. Hemoglobin was 13.8 and platelet count was 191,000. INR is 1.16 and PTT is 25.9. Serum sodium is 136 and potassium is 4.0, BUN 10 and creatinine 0.8. Calcium is 9.1, albumin of 3.9. Troponin was 0.02. CT scan of the head demonstrated an acute hemorrhage in the left medial frontal lobe near the head of the caudate nucleus. There is rupture into the ventricle with intraventricular hemorrhage. There is dilatation of the lateral and 3rd ventricle relative to the 4th ventricle. There is no transependymal CSF flow. The intraventricular hemorrhage is shown both anteriorly as well as in the occipital horn. There is some blood in the 3rd and 4th ventricle as well. IMPRESSION: 1. 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 2. Obesity. 3. Hypertension. RECOMMENDATIONS: Patient presents with acute neurological event which happened sometime after midnight last night. She was found obtunded on the floor and somnolent at home. Her neurological exam is blocked at this time. CT scan of the head demonstrated the left head of caudate hemorrhage which extends into the bilateral ventricles causing intraventricular hemorrhage. There is also ventricular dilatation. The patient's blood pressure should be carefully controlled such that it is brought down, but not brought down too suddenly to decrease her cerebral perfusion pressure. A ventricular catheter is likely needed to decrease the CSF accumulation and the intraventricular hemorrhage. I did communicate with the operating room for both supplies as well as the ICU nursing staff for post drain monitoring and drain maintenance. Unfortunately, the supplies are not available for the drain placement at this time. It is my recommendation now that the patient be transferred to a tertiary institution for definitive treatment and optimal care. The above was communicated with the emergency room and ICU attending. The patient was examined in the emergency room. The air ambulance team was present in the emergency room at the time of my examination. LISSETH LANDIS M.D. [id number] MTDD
== END 2020-02-29 17:16 | disposition short-term general hospital (02) ==
LOC: JER 14:28
PROC: 3E033GC Introduction of Other Therapeutic Substance into Peripheral Vein, Percutaneous Approach (ICD-10-PCS; principal; 2020-02-29)
PROC: 0BH17EZ Insertion of Endotracheal Airway into Trachea, Via Natural or Artificial Opening (ICD-10-PCS; principal; 2020-02-29)
DX: I63.9 Cerebral infarction, unspecified (principal)
CPT/HCPCS: 36415; 36600; 70450-TC; 71045-TC-FY; 80053; 80061; 82550; 82553; 82803; 82962; 83721; 84484; 85025; 85610; 85730; 93005; 93010; 99291